=== PATIENT | female | born 1930 | race Asian ===

== ENCOUNTER 2016-06-20 11:12 | Inpatient (IN) | payer OTHER ==
[~2016-06-20] VITALS: Ht 152.4 cm; Wt 79.0 kg
[~2016-06-20 11:12] MED LIST: AMLO-110 PO; ATOR10TA88 PO; CALCTAB7 PO; CEFAZOLIN IV 2,000 MG/60 ML D5W IV SCH; COEN100C11 PO; INSDGI SC; LOSA50TA54 PO; MAGN400T6 PO; METF1000 PO; METO-596 PO; MULTTAB58 PO; NITR0.4S UT; OMEG1200 PO; ONDA4TAB10 SL; SPRIN/30 INH
[2016-06-20] MEDS ORDERED: ONDANSETRON INJ 2 MG/ML 2 ML VIAL IV STA ×2 (11:26→20:02)
--- NOTE | 2016-06-20 11:27 | EMERGENCY ROOM VISIT NOTE ---
History Report prepared by [place]: Lev Duarte Under the Supervision of: Dr. Hipolito Mendosa D.O. First contact with patient: 11:17 Chief Complaint: LEG PAIN,LEG INJURY Stated Complaint: FALL, R LEG FX History of Present Illness The patient is an 85 year old female who presents to the Emergency Room with complaints of persistent right knee pain status-post fall this morning. The patient's family believes that she lost her balance before falling. She did not hit her head or lose consciousness. The patient denies chest, back, or abdominal pain. She had some relief of her pain from Fentanyl which she received in the ambulance en route to the ED. The patient is s/p bilateral knee replacement. She has a history of hypertension and diabetes. The patient denies tobacco or alcohol use. Source of History: patient, family Onset: this morning Position: knee (right) Quality: other (s/p fall) Timing: other (persistent) Modifying Factors (Relieving): narcotics Associated Symptoms: No LOC, No abdominal pain, No back pain, No chest pain , No headache Review of Systems See HPI for pertinent positives & negatives. A total of 10 systems reviewed and were otherwise negative. Past Medical & Surgical Medical Problems: (1) DM (diabetes mellitus) (2) HTN (hypertension) (3) Stacey-prosthetic femoral shaft fracture Surgical Problems: (1) B/L hip arthroplasty Family History Patient reports no known family medical history. Social History Smoking Status: Never Smoker Occupation Status: unemployed Current/Historical Medications Scheduled Amlodipine (Norvasc), 5 MG PO DAILY Atorvastatin (Lipitor), 5 MG PO DAILY Calcium Carbonate-Vitamin D W/ (Caltrate 600 Plus), 1 TAB PO DAILY Coenzyme Q10 (Ubidecarenone) (Coq-10), 200 MG PO DAILY Insulin Glargine (Lantus), 37 UNITS SC QAM Losartan Potassium (Cozaar), 50 MG PO BID Magnesium Oxide (Mag-Ox), 400 MG PO DAILY Metformin Hcl (Glucophage), 1,000 MG PO BID Metoprolol Tartrate (Lopressor), 100 MG PO BID Multiple Vitamin (Multivitamin), 1 TAB PO DAILY [place]-3 Fatty Acids (Fish Oil), 1 CAP PO DAILY Tiotropium [place] (Spiriva Handihaler), 1 CAP INH DAILY Scheduled PRN Nitroglycerin (Nitrostat), 0.4 MG UT UD PRN for Chest Pain Allergies Coded Allergies: No Known Allergies (Verified , 06/20/16) Physical Exam Vital Signs Date Time Temp Pulse Resp B/P Pulse Ox O2 Delivery O2 Flow Rate FiO2 06/20/16 15:30 88 20 129/80 97 06/20/16 13:53 60 20 136/74 100 Nasal Cannula 06/20/16 13:00 63 06/20/16 12:19 99 Nasal Cannula 2.0 06/20/16 12:17 64 18 158/74 99 Nasal Cannula 2.0 06/20/16 11:14 36.6 60 18 160/81 88 Room Air Physical Exam GENERAL: Patient is awake, alert, very anxious and uncomfortable appearing, appears to be in significant pain. EYES: The conjunctivae are clear. The pupils are round and reactive. EARS, NOSE, MOUTH AND THROAT: The nose is without any evidence of any deformity. Mucous membranes are moist tongue is midline NECK: The neck is nontender and supple. RESPIRATORY: Normal respiratory effort is noted there is no evidence of wheezing rhonchi or rales CARDIOVASCULAR: Regular rate and rhythm noted there no murmurs rubs or gallops normal S1 normal S2 GASTROINTESTINAL: The abdomen is soft. Bowel sounds are present in all quadrants. Abdomen is nontender BACK: No midline tenderness or or step-off noted range of motion in flexion extension as well as rotation no signs of muscle spasm noted MUSCULOSKELETAL/EXTREMITIES: Crepitus and tenderness over the right knee, range of motion was deferred at this time, no instability in anterior posterior plane , pulses symmetric distally. SKIN: There is no obvious evidence of any rash. There are no petechiae, pallor or cyanosis noted. NEUROLOGIC: Patient is awake alert and oriented x3. Medical Decision & Procedures ER Provider Diagnostic Interpretation: X-ray results as stated below per interpretation by me and the radiologist. RIGHT KNEE 1 OR 2 VIEWS ROUTINE CLINICAL HISTORY: fall Right trauma. Pain. COMPARISON: None. DISCUSSION: Blank distracted fracture distal femoral shaft. Fracture extends to a position immediately lateral to a total joint prosthetic at the level of the femoral component. No additional acute bony abnormalities are appreciated. There is no evidence for soft tissue swelling. IMPRESSION: Oblique distracted fracture distal femoral shaft Electronically signed by: Blaze Felix M.D. 06/20/2016 12:08 PM Dictated Date/Time: 06/20/2016 12:07 PM Laboratory Results Test 06/20/16 12:30 Immature Granulocyte % (Auto) 0.2 % White Blood Count 10.76 K/uL (4.8-10.8) Red Blood Count 4.22 M/uL (4.2-5.4) Hemoglobin 12.3 g/dL (12.0-16.0) Hematocrit 36.7 % (37-47) Mean Corpuscular Volume 87.0 fL (80-100) Mean Corpuscular Hemoglobin 29.1 pg (25-34) Mean Corpuscular Hemoglobin Concent 33.5 g/dl (32-36) Platelet Count 257 K/uL (130-400) Mean Platelet Volume 9.8 fL (7.4-10.4) Neutrophils (%) (Auto) 71.8 % Lymphocytes (%) (Auto) 21.8 % Monocytes (%) (Auto) 4.0 % Eosinophils (%) (Auto) 2.0 % Basophils (%) (Auto) 0.2 % Neutrophils # (Auto) 7.73 K/uL (1.4-6.5) Lymphocytes # (Auto) 2.35 K/uL (1.2-3.4) Monocytes # (Auto) 0.43 K/uL (0.11-0.59) Eosinophils # (Auto) 0.21 K/uL (0-0.5) Basophils # (Auto) 0.02 K/uL (0-0.2) Immature Granulocyte # (Auto) 0.02 K/uL (0.00-0.02) Activated Partial Thromboplast Time 27.6 SECONDS (21.0-31.0) Partial Thromboplastin Ratio 1.1 Estimated Average Glucose 171 mg/dl Hemoglobin A1c 7.6 % (4.5-5.6) Total Bilirubin 0.5 mg/dl (0.2-1) Direct Bilirubin < 0.1 mg/dl (0-0.2) Aspartate Amino Transf (AST/SGOT) 16 U/L (15-37) Alanine Aminotransferase (ALT/SGPT) 20 U/L (12-78) Alkaline Phosphatase 103 U/L (45-117) Troponin I < 0.015 ng/ml (0-0.045) Total Protein 7.2 gm/dl (6.4-8.2) Albumin 2.9 gm/dl (3.4-5.0) Lipase 114 U/L (73-393) Laboratory results per my review. Medications Administered Medications (Trade) Dose Ordered Sig/Alexis Route Start Time Stop Time Status Last Admin Dose Admin Ondansetron HCl (Zofran Inj) 4 mg NOW STAT IV 06/20/16 11:26 06/20/16 11:27 DC 06/20/16 12:24 4 MG Morphine Sulfate (MoRPHine SULFATE INJ) 4 mg Q15M PRN IV 06/20/16 11:30 06/20/16 21:55 DC 06/20/16 12:24 4 MG Cefazolin Sodium 2000 mg 2,000 mg PREOP IV 06/20/16 06:00 06/20/16 18:00 DC 06/20/16 16:14 2,000 MG Sodium Chloride (1/2 Nss 1000ml) 1,000 ml @ 100 mls/hr Q10H IV 06/20/16 14:15 07/20/16 14:14 06/20/16 23:49 100 MLS/HR Povidone Iodine (Betadine Ophthalmic Prep Solution) 30 ml STK-MED ONCE .ROUTE 06/20/16 15:49 06/20/16 15:51 DC 06/20/16 15:49 17.5 ML Lidocaine/ Epinephrine (Xylocaine/Epine 1% Inj) 20 ml STK-MED ONCE .ROUTE 06/20/16 16:17 06/20/16 16:19 DC 06/20/16 16:17 20 ML Bupivacaine HCl (Marcaine 0.5% MPF Inj) 30 ml STK-MED ONCE .ROUTE 06/20/16 16:17 06/20/16 16:20 DC 06/20/16 16:17 20 ML Oxycodone HCl (Roxicodone Immediate Rel Tab) 1-2 TABS FOR PAIN 1 TABLET ... Q4H PRN PO 06/20/16 19:30 07/04/16 19:29 06/21/16 06:35 10 MG ED Course 1125: The patient was evaluated in room B12b. A complete history and physical examination were performed. 1126: Zofran 4 mg IV. 1130: Morphine Sulfate 4 mg IV. 1253: Spoke with Miguel Benitez PA-C, [facility]. Somebody will be in to see the patient. 1324: The patient is being evaluated by Dr. Todd, [facility]. The patient will be taken to the OR. 1420: Spoke with Dr. Ramsay [facility], for medical clearance. Medical Decision Prior records reviewed and summarized above. Triage Nursing notes reviewed and agree them. Additional history obtained from family. The patient's history was concerning for traumatic injury. Differential diagnosis: Etiologies such as fracture, dislocation, neurovascular compromise, compartment syndrome, soft tissue injury, as well as others were entertained. The patient is an 85-year-old female who presented to the emergency department for an evaluation of right knee pain. The patient has a history of knee replacement on that side. This was done at another hospital. The patient had very severe right knee pain on exam. The patient's x-ray did show a significant distal femur fracture which appeared to be above the knee replacement. I discussed this case with the covering orthopedic physician at the [facility]. I also discussed his case with the on-call [facility] group. They 've agreed to evaluate the patient in the emergency department for further management and disposition. The patient was treated with IV fluids IV pain medicine and IV antiemetics. She was feeling much better on subsequent reevaluation. Likely this represents a surgical fracture. Consults Time Called: 1250 Consulting Physician: Miguel Benitez PA-C, [facility] Returned Call: [phone]: Spoke with Miguel Benitez PA-C, [facility]. Somebody will be in to see the patient. Additional Consults: Time Called: 1410 Consulted Physician: Dr. Ramsay, [facility], Returned Call: 1420 Additional Comments: 1420: Spoke with Dr. Ramsay, [facility], for medical clearance. Impression Primary Impression: Fall Additional Impression: Displaced fracture of right femur Scribe Attestation The scribe's documentation has been prepared under my direction and personally reviewed by me in its entirety. I confirm that the note above accurately reflects all work, treatment, procedures, and medical decision making performed by me. Departure Information Dispostion Being Evaluated By Surgeon Referrals No Doctor, Assigned (PCP) Patient Instructions My [facility] Problem Qualifiers Primary Impression: Fall Encounter type: initial encounter Qualified Codes: W19.XXXA - Unspecified fall, initial encounter Additional Impression: Displaced fracture of right femur Femur location: shaft Fracture type: closed Fracture morphology: oblique
[2016-06-20] MEDS ORDERED: MoRPHine SULFATE 4 MG/ML 1 ML CARP\\VIAL IV PRN (11:30)
[2016-06-20] MEDS ORDERED: INSDGI SC (11:42)
--- NOTE | 2016-06-20 12:09 | DIAGNOSTIC IMAGING REPORT ---
RIGHT KNEE 1 OR 2 VIEWS ROUTINE CLINICAL HISTORY: fall Right trauma. Pain. COMPARISON: None. DISCUSSION: Blank distracted fracture distal femoral shaft. Fracture extends to a position immediately lateral to a total joint prosthetic at the level of the femoral component. No additional acute bony abnormalities are appreciated. There is no evidence for soft tissue swelling. IMPRESSION: Oblique distracted fracture distal femoral shaft Electronically signed by: Blaze Felix M.D. 06/20/2016 12:08 PM Dictated Date/Time: 06/20/2016 12:07 PM
[2016-06-20 12:38] LABS: BASO % 0.2 %; BASO ABS # 0.02 K/uL (0-0.2); COMPLETE YES; HEMATOCRIT 36.7 % (37-47); IG% 0.2 %; LYMPH % 21.8 %; LYMPH ABS # 2.35 K/uL (1.2-3.4); MEAN CORPUSCULAR HEMOGLOBIN 29.1 pg (25-34); MEAN CORPUSCULAR HGB CONC 33.5 g/dl (32-36); MEAN PLATELET VOLUME 9.8 fL (7.4-10.4); NEUT % 71.8 %; PLATELET COUNT 257 K/uL (130-400); RED BLOOD COUNT 4.22 M/uL (4.2-5.4); WHITE BLOOD COUNT 10.76 K/uL (4.8-10.8)
[2016-06-20 12:47] LABS: PARTIAL THROMBOPLASTIN RATIO 1.1; PROTHROMBIN TIME (PATIENT) 10.7 SECONDS (9.0-12.0)
[2016-06-20 12:58] LABS: BLOOD UREA NITROGEN 8 mg/dl (7-18); BUN/CREATININE RATIO 16.5 (10-20); CALCIUM 8.6 mg/dl (8.5-10.1); CARBON DIOXIDE 31 mmol/L (21-32); CHLORIDE 99 mmol/L (98-107); CREATININE 0.49 mg/dl (0.60-1.20); GLUCOSE 145 mg/dl (70-99); POTASSIUM 3.9 mmol/L (3.5-5.1); SODIUM 136 mmol/L (136-145)
[2016-06-20 13:01] LABS: ALKALINE PHOSPHATASE 103 U/L (45-117); ALT/SGPT 20 U/L (12-78); AST/SGOT 16 U/L (15-37)
[2016-06-20] MEDS: SODIUM CHLORIDE 0.45% 1000ML 1,000 ML IV SCH ×2 (14:15→23:49)
--- NOTE | 2016-06-20 14:40 | History and Physical ---
History & Physical Date Jun 20, 2016. Chief Complaint RLE pain History of Present Illness The patient is a 85 year old female with complaints of RLE pain after a fall earlier today. She denies any LOC, SOB, or dizziness before or after fall. She is visiting from [place]. Past Medical/Surgical History Medical Problems: (1) DM (diabetes mellitus) (2) HTN (hypertension) Surgical Problems: (1) B/L Knee arthroplasty Additional History Hepatic Disease: No Endocrine Disorder: Yes (Diabetes) Kidney Disease: No Hypertension: Yes Heart Disease: Bleeding Tendencies: No Infectious Diseases: No Allergies Coded Allergies: No Known Allergies (Verified , 06/20/16) Home Medications Scheduled Amlodipine (Norvasc), 5 MG PO DAILY Atorvastatin (Lipitor), 5 MG PO DAILY Calcium Carbonate-Vitamin D W/ (Caltrate 600 Plus), 1 TAB PO DAILY Coenzyme Q10 (Ubidecarenone) (Coq-10), 200 MG PO DAILY Insulin Glargine (Lantus), 37 UNITS SC QAM Insulin Glargine (Lantus), 37 UNITS SC QAM Losartan Potassium (Cozaar), 50 MG PO BID Magnesium Oxide (Mag-Ox), 400 MG PO DAILY Metformin Hcl (Glucophage), 1,000 MG PO BID Metoprolol Tartrate (Lopressor), 100 MG PO BID Multiple Vitamin (Multivitamin), 1 TAB PO DAILY [place]-3 Fatty Acids (Fish Oil), 1 CAP PO DAILY Tiotropium [place] (Spiriva Handihaler), 1 CAP INH DAILY Scheduled PRN Nitroglycerin (Nitrostat), 0.4 MG UT UD PRN for Chest Pain Physical Examination Head: normocephalic, atraumatic Neck: supple, trachea midline Respiratory/Chest: lungs clear, no respiratory distress Cardiovascular: regular rate, rhythm Abdomen / GI: non tender Extremities: + pertinent finding (Previous incisions well healed.Wiggling toes up & down. + TTP Right thigh. BCR > sec. Sensation to LT intact.) Addiitonal Comments: RADIOGRAPHS: Displaced shortened distal femur oblique fracture, with well fixed TKA components. Diagnosis Right distal periprosthetic femur fracture, closed, initial visit. Plan of Treatment After a lengthy discussion with the family and patient regarding my above findings, I recommended ORIF R distal femur. The risk and benefits of surgery vs non-op treatment were discussed. They wished to proceed with surgery. Will plan on surgery once medically cleared and OR available. She is NPO with IVF, and NWB RLE. Jackson will be placed. Consent form signed.
[2016-06-20] MEDS ORDERED: FENTANYL CITRATE INJ 50 MCG/1 ML 2 ML VIAL ONE ×2 (15:32→17:26)
[2016-06-20] MEDS ORDERED: POVIDONE-IODINE OP SOLN 30 ML BTL ONE (15:49)
[2016-06-20] MEDS ORDERED: BUPIVACAINE 0.5 % 5 MG/1 ML MPF 30ML VIAL ONE (16:17)
[2016-06-20] MEDS ORDERED: LIDOCAINE/EPINEPHRINE 1% 20 ML VIAL ONE (16:17)
--- NOTE | 2016-06-20 16:18 | DIAGNOSTIC IMAGING REPORT ---
CHEST ONE VIEW PORTABLE HISTORY: Right leg fracture. medical clearance COMPARISON: Chest 04/27/2016. FINDINGS: Stable right hilar prominence and blunting the left lateral costophrenic sulcus. The heart is mildly enlarged. This is also unchanged. No new focal lung consolidations. No evidence for pulmonary edema. No pneumothorax. Right paratracheal fullness is also stable. IMPRESSION: No significant change compared to the prior study. No acute process. Stable right hilar prominence and left basilar pleural thickening. Electronically signed by: Celso Hood M.D. 06/20/2016 4:16 PM Dictated Date/Time: 06/20/2016 4:15 PM
[2016-06-20] MEDS ORDERED: IV FLUIDS COMPLETED PRN (16:30)
[2016-06-20] MEDS ORDERED: CISATRACURIUM BESYLATE IV SOLN 2 MG/ML 10 ML VIAL ONE (16:54)
[2016-06-20] MEDS ORDERED: PHENYLEPHRINE HCL INJ 10 MG/ML VIAL ONE (16:54)
[2016-06-20] MEDS ORDERED: NEOSTIGMINE METHYLSULFATE 5 MG/5 ML SYR ONE (16:54)
[2016-06-20] MEDS ORDERED: EpHEDrine SULFATE 50MG/5ML SYR ONE (16:54)
[2016-06-20] MEDS ORDERED: LARYING-O-JET KIT (LTA) EXT ONE ×2 (16:54)
[2016-06-20] MEDS ORDERED: PROPOFOL IV EMULSION 10 MG/ML 20 ML VIAL IV ONE (16:54)
[2016-06-20] MEDS ORDERED: ONDANSETRON INJ 2 MG/ML 2 ML VIAL ONE ×2 (16:54→20:01)
[2016-06-20] MEDS ORDERED: LIDOCAINE HCL 2% 2 ML VIAL (20MG/ML) ONE (16:54)
[2016-06-20] MEDS ORDERED: GLYCOPYRROLATE INJ 0.2 MG/ML VIAL ONE (16:54)
[2016-06-20] MEDS ORDERED: SUCCINYLCHOLINE 100MG/5ML SYR IV ONE (17:25)
--- NOTE | 2016-06-20 19:25 | [facility] Post Operative Brief Note ---
Immediate Operative Summary Operative Date Jun 20, 2016. Pre-Operative Diagnosis Right distal periprosthetic femur fracture Post-Operative Diagnosis Same as preoperative diagnosis Procedure(s) Performed Open Reduction Internal Fixation Right Femur Fracture Surgeon Dr. Todd Finance Clerk Surgeon(s) Dr Alejandra Estimated Blood Loss 200ml Findings Displaced, long oblique, distal femur, periprosthetic fracture, femoral component well fixed. Fluids (cc crystalloids) 1400 Specimens none Drains n/a Anesthesia Gen Complication(s) None Disposition Recovery Room / PACU (Stable)
--- NOTE | 2016-06-20 19:26 | [facility] Operative Report ---
Operative Report Operative Date Jun 20, 2016. Pre-Operative Diagnosis Right distal periprosthetic femur fracture Post-Operative Diagnosis Same Procedure(s) Performed ORIF right distal periprosthetic femur fracture. Surgeon Dr. Todd Perishable Freight Inspector Surgeon(s) Dr Alejandra Estimated Blood Loss 200ml Findings Displaced, long oblique, distal femur, periprosthetic fracture, femoral component well fixed. Fluids 1400 Specimens none Drains n/a Anesthesia Gen Complication(s) None Disposition Recovery Room / PACU (Stable) Indications The patient is a 85 year old female who sustained a right distal femur periprosthetic fracture from a ground level fall. The patients treatment options of conservative versus surgical intervention were discussed. I recommended surgery, once the patient was medically cleared, to allow for decreased morbidity and mortality. The patient understands the risks of surgery , which include but are not limited to: bleeding, infection, re-operation, damage to nerves and arteries, continued pain, failure of the hardware, mal- union, non-union, DVT, and . The patient understands all of these instructions and explanations, all of their questions have been satisfactorily addressed. The patient has elected to proceed with surgery and the informed consent was signed. Description of Procedure IMPLANTS: 1) Synthes 8 Hole Shaft 4.5 mm Locking Condylar Plate (Synthes). 2) 7.3 mm Cannulated Screw x 60 mm. 3) 5.0 mm Cannulated Screw x 55 mm. 4) 5.0 Solid Locking Screws (28, 32 x 2, 34 x 3, 36, & 65 mm). 5) 4.5 mm cortical screw 32 & 34 mm. PROCEDURE: The patient was taken to the Operating Room and placed in the Supine position on the radiolucent table after general anesthesia was administered. A bump was placed under the ipsilateral hip. A multidisciplinary time-out was performed identifying my initials on the right lower limb as the correct and operative limb. Prior to the incision being made, 2 grams of intravenous Ancef was given. The right lower extremity was prepped in the standard fashion. The distal femur, proximal fibula, the previous knee incisions, and the planned incision were marked. The incision was injected with a 50:50 mixture of 1% Lidocaine plain and 0.5% Bupivacaine with epinephrine for a total of 10cc. The planned incision was made and carried down and through the IT band, using the rent in the distal aspect of the IT band caused by the proximal fragment, to expose the distal femur. An elevator was used to expose the ends of the fracture fragments which were displaced. The fracture site was cleaned with a combination of irrigation, suction, and Ronguer. The femoral prosthesis was well fixed to the distal fragment. A Fabreugh clamp was used to hold the fragments reduced after using a bump, distal traction and manually keying in the 2 fragments together. Fluoroscopy was brought in to ensure anatomic reduction. A cortical lag screw was placed to hold the fracture reduced. An 8 hole plate was selected and Fluoroscopy was used to guide wire was placed. The initial lag screw prevented the plate from seating properly. 2 additional lag screws more proximally were placed in a more superior to posterior angle to allow the plate to sit properly after the initial lag screw was removed. The reduction and plate alignment was check under Fluoroscopy, showing excellent alignment and placement of the plate. A whirlybird was placed to hold the proximal aspect of the plates reduced to the shaft. Two more guide wires were placed distally and the distal central 7.3 screw was placed. The central distal screw was locked in place and the 5.0 cannulated screw was placed in the standard fashion. 3 additional 5.0 solid locking screws were placed in the standard fashion distally. Four 5.0 locking screws were placed through the plate in the proximal fragment and obtained bi-cortical fixation in the standard fashion. The wounds were copiously irrigated with 500 cc normal saline mixed with Betadine ophthalmic solution followed by another 2 L of normal saline. Fluoroscopy was brought in to obtain final x-rays which showed near anatomic alignment, with good placement of the plates and screws, TKA components in good position with no evidence of loosening. The IT Band was closed with 0 Vicryl. The subcutaneous tissue was closed with 3 -0 Vicryl. The skin was closed with bernard. The incisions were covered with Xeroform, 4x4s, ABD, and Sterile cast padding, and foot to thigh JOHN. The alignment of her lower leg was the same as her non-operative side. Range of motion of the knee was 0-110 degrees. The patient was transfer to the hospital bed and taken to the PACU in stable condition. The patient was placed in a hinged range of motion knee brace, locked in extension. The sponge and needle counts were correct. Post-op Instructions: The patient was re-admitted to the hospitalist service. The patient will be NWB. The patient will be seen by PT/OT. Labs will be checked in the am. DVT prophylaxis will be with mechanical devices and Lovenox will be started in the a.m and continued for 3 weeks, followed by aspirin for another 3 weeks. The brace may be unlocked to match her maximum range of motion for sitting purposes. It can be blocked at 30 of flexion while ambulating. I attest to the content of the Intraoperative Record and any orders documented therein. Any exceptions are noted below.
[2016-06-20] MEDS ORDERED: ONDANSETRON INJ 2 MG/ML 2 ML VIAL IV PRN (19:30)
[2016-06-20] MEDS ORDERED: METOCLOPRAMIDE HCL INJ 5 MG/ML 2 ML VIAL IV PRN (19:30)
[2016-06-20] MEDS ORDERED: DiphenhydrAMINE HCL 50 MG/ML VIAL IV PRN (19:30)
--- NOTE | 2016-06-20 19:33 | DIAGNOSTIC IMAGING REPORT ---
RIGHT FEMUR 2 VIEWS ROUTINE CLINICAL HISTORY: ORIF DISTAL RIGHT FEMUR Right COMPARISON STUDY: Right knee 06/20/2016. FINDINGS: Total fluoroscopy time was 34 seconds. 5 fluoroscopic spot images of the right femur. There is a cortical plate transfixed with screws bridging the distal femoral fracture. The hardware appears intact. The alignment is anatomic. There is a right total knee arthroplasty. IMPRESSION: Fluoroscopy provided for internal fixation of a distal right femur fracture. Electronically signed by: Celso Hood M.D. 06/20/2016 7:31 PM Dictated Date/Time: 06/20/2016 7:31 PM
[2016-06-20] MEDS ORDERED: NITROGLYCERIN 0.4 MG SL PER TAB CHARGE UT PRN (19:45)
[2016-06-20] MEDS ORDERED: LABETALOL HCL IV 5 MG/ML 20ML IV PRN (20:00)
[2016-06-20] MEDS ORDERED: PROMETHAZINE HCL INJ 12.5 MG in SODIUM CHLORIDE 0.9% 50ML 50 ML IV ONE (20:00)
[2016-06-20] MEDS ORDERED: ATROPINE SULFATE 0.1 MG/ML 5ML SYR IV PRN (20:00)
[2016-06-20] MEDS ORDERED: NALOXONE HCL 0.4 MG/1 ML VIAL/CARP IV PRN (20:00)
[2016-06-20] MEDS ORDERED: FENTANYL CITRATE INJ 50 MCG/1 ML 2 ML VIAL IV PRN (20:00)
[2016-06-20] MEDS ORDERED: EpHEDrine SULFATE INJ 50 MG/ML AMP IV PRN (20:00)
[2016-06-20 20:29] LABS: HEMATOCRIT 32.6 % (37-47)
--- NOTE | 2016-06-20 20:32 | Anesthesiology Progress Note ---
Anesthesia Post Op Note Date & Time Jun 20, 2016 at 20:32 Vital Signs Pain Intensity: 0 Vital Signs Past 12 Hours Date Time Temp Pulse Resp B/P Pulse Ox O2 Delivery O2 Flow Rate FiO2 06/20/16 20:20 63 15 143/71 96 Nasal Cannula 4 06/20/16 20:10 66 16 135/78 99 Mask 10 06/20/16 20:00 67 16 152/70 97 Mask 10 06/20/16 19:49 36.9 68 16 141/82 99 Mask 10 06/20/16 15:30 88 20 129/80 97 06/20/16 13:53 60 20 136/74 100 Nasal Cannula 06/20/16 13:00 63 06/20/16 12:19 99 Nasal Cannula 2.0 06/20/16 12:17 64 18 158/74 99 Nasal Cannula 2.0 06/20/16 11:14 36.6 60 18 160/81 88 Room Air Notes Mental Status: alert / awake / arousable, participated in evaluation Pt Amnestic to Procedure: Yes Nausea / Vomiting: adequately controlled Pain: adequately controlled Airway Patency, RR, SpO2: stable & adequate BP & HR: stable & adequate Hydration State: stable & adequate Anesthetic Complications: no major complications apparent
[2016-06-20 21:45] VITALS: BP 152/75; PULSE 72; TEMP 36.4; O2SAT 96
[2016-06-20] MEDS ORDERED: GLUCOSE 40% GEL 15 GM TUBE PO PRN (21:45)
[2016-06-20] MEDS ORDERED: GLUCOSE 10 TABS/TUBE PO PRN (21:45)
[2016-06-20] MEDS ORDERED: GLUCAGON FOR INJ 1 MG VIAL SQ PRN (21:45)
[2016-06-20] MEDS ORDERED: DEXTROSE 50% 50 ML SYR IV PRN (21:45)
[2016-06-20] MEDS ORDERED: ERGOCALCIFEROL 50,000 INTER.UNIT CAP PO ONE (22:00)
[2016-06-20 22:20] VITALS: BP 148/76; PULSE 78; TEMP 36.3; O2SAT 96
[2016-06-20] MEDS: OXYCODONE HCL IR 5 MG TAB (IMMEDIATE RELEASE) PO PRN (22:24)
--- NOTE | 2016-06-20 22:30 | Progress Note ---
Subjective Date of Service: Jun 20, 2016. Subjective Pt evaluation today including: conversation w/ patient, conversation w/ family , physical exam, chart review, lab review, review of studies, conversation w/ eligibility consultant, review of inpatient medication list pt seen ~230pm, d/w dr celis and andressa asked to evaluate for preop assessment and then continue to manage post op femur fx no current chest pain no sob. does get DENSON but family notes this is ongoing and stable for at least 2 years. son in law relates some kind of cardiac testing back home in [place] that raised concern no CAD, but no clear hx of [place] /cath/stenting, and no sx acutely. diabetic. Problem List Medical Problems: (1) Displaced fracture of right femur Status: Acute (2) Fall Status: Acute (3) Left lower lobe pneumonia Status: Acute (4) Vomiting Status: Acute Review of Systems Respiratory: + dyspnea on exertion (ongoing chronic), No shortness of breath Cardiac: No chest pain ros otherwise negative except for as above Objective Vital Signs Date Time Temp Pulse Resp B/P Pulse Ox O2 Delivery O2 Flow Rate FiO2 06/20/16 21:45 Nasal Cannula 4.0 06/20/16 21:45 36.4 72 16 152/75 96 Nasal Cannula 4.0 06/20/16 21:15 80 18 115/58 96 Nasal Cannula 4 06/20/16 21:00 73 16 132/61 97 Nasal Cannula 4 06/20/16 20:45 63 16 132/61 97 Nasal Cannula 4 06/20/16 20:30 36.1 66 16 132/69 97 Nasal Cannula 4 06/20/16 20:20 63 15 143/71 96 Nasal Cannula 4 06/20/16 20:10 66 16 135/78 99 Mask 10 06/20/16 20:00 67 16 152/70 97 Mask 10 06/20/16 19:49 36.9 68 16 141/82 99 Mask 10 06/20/16 15:30 88 20 129/80 97 06/20/16 13:53 60 20 136/74 100 Nasal Cannula 06/20/16 13:00 63 06/20/16 12:19 99 Nasal Cannula 2.0 06/20/16 12:17 64 18 158/74 99 Nasal Cannula 2.0 06/20/16 11:14 36.6 60 18 160/81 88 Room Air Physical Exam General Appearance: no apparent distress Eyes: EOMI ENT: hearing grossly normal Neck: trachea midline Respiratory/Chest: lungs clear, normal breath sounds, no respiratory distress, no accessory muscle use Cardiovascular: regular rate, rhythm Neurologic/Psychiatric: environmental compliance inspector II-XII nml as tested, alert Skin: normal color, warm/dry Laboratory Results Last 24 Hours Test 06/20/16 12:30 06/20/16 15:45 06/20/16 19:51 06/20/16 20:20 White Blood Count 10.76 K/uL Red Blood Count 4.22 M/uL Hemoglobin 12.3 g/dL 10.9 g/dL Hematocrit 36.7 % 32.6 % Mean Corpuscular Volume 87.0 fL Mean Corpuscular Hemoglobin 29.1 pg Mean Corpuscular Hemoglobin Concent 33.5 g/dl Platelet Count 257 K/uL Mean Platelet Volume 9.8 fL Neutrophils (%) (Auto) 71.8 % Lymphocytes (%) (Auto) 21.8 % Monocytes (%) (Auto) 4.0 % Eosinophils (%) (Auto) 2.0 % Basophils (%) (Auto) 0.2 % Neutrophils # (Auto) 7.73 K/uL Lymphocytes # (Auto) 2.35 K/uL Monocytes # (Auto) 0.43 K/uL Eosinophils # (Auto) 0.21 K/uL Basophils # (Auto) 0.02 K/uL RDW Standard Deviation 43.4 fL RDW Coefficient of Variation 13.8 % Immature Granulocyte % (Auto) 0.2 % Immature Granulocyte # (Auto) 0.02 K/uL Prothrombin Time 10.7 SECONDS Prothromb Time International Ratio 1.0 Activated Partial Thromboplast Time 27.6 SECONDS Partial Thromboplastin Ratio 1.1 Sodium Level 136 mmol/L Potassium Level 3.9 mmol/L Chloride Level 99 mmol/L Carbon Dioxide Level 31 mmol/L Anion Gap 6.0 mmol/L Blood Urea Nitrogen 8 mg/dl Creatinine 0.49 mg/dl Est Creatinine Clear Calc Drug Dose 79.5 ml/min Estimated GFR () 103.7 Estimated GFR (Non- 89.5 BUN/Creatinine Ratio 16.5 Random Glucose 145 mg/dl Calcium Level 8.6 mg/dl Total Bilirubin 0.5 mg/dl Direct Bilirubin < 0.1 mg/dl Aspartate Amino Transf (AST/SGOT) 16 U/L Alanine Aminotransferase (ALT/SGPT) 20 U/L Alkaline Phosphatase 103 U/L Troponin I < 0.015 ng/ml Total Protein 7.2 gm/dl Albumin 2.9 gm/dl Lipase 114 U/L Bedside Glucose 129 mg/dl 198 mg/dl 25-Hydroxy Vitamin D Total 32.9 ng/ml Assessment and Plan femur fx - EKG nonacute, certainly as d/w ortho, anesthesia, and family, risks of not proceeding (bedbound, high risk, long healing) greatly outweigh procedural risks. all in agreement. -vitamin D level reasonable. outpt f/u for bone health eval DM - check A1c, continue home meds, add supplemental novolog, follow BSG HTN - continue home meds, follow DVT proph - per orthopedics DENSON - longstanding, appearing to be stable. as long as no acute incidents or new sx arise during her hospitalization, would continue w/u and f/u w physician team more familiar to her at home ?COPD - continue spiriva - get records from home (son in law notes they can get information off portal - was just having technical difficulties at the time i was talking with him)
[2016-06-20 22:57] VITALS: BP 167/79; PULSE 87; TEMP 36.4; O2SAT 97
[2016-06-20] MEDS: CEFAZOLIN IV 2,000 MG in DEXTROSE 5% 50ML 50 ML IV SCH (23:49)
[2016-06-20] MEDS: LOSARTAN POTASSIUM 50 MG TAB PO SCH (23:50)
[2016-06-20] MEDS: METOPROLOL TARTRATE 100 MG TAB PO SCH (23:50)
[2016-06-20] MEDS: METFORMIN HCL 500 MG TAB PO SCH (23:51)
[2016-06-20 23:52] VITALS: BP 155/79; PULSE 93; TEMP 36.3; O2SAT 96
[2016-06-20] MEDS: MoRPHine SULFATE 2 MG/ML CARP IV PRN (23:53)
[2016-06-21] VITALS (9 sets, daily range): BP systolic 98–155; BP diastolic 59–75; PULSE 68–101; TEMP 36.3–37.2; O2SAT 92–98; Ht 152.4 cm; Wt 79.0 kg
[2016-06-21] MEDS: MoRPHine SULFATE 2 MG/ML CARP IV PRN (03:40)
[2016-06-21 06:10] LABS: ESTIMATED AVERAGE GLUCOSE 171 mg/dl; HA1C FLAG Normal (Normal)
[2016-06-21] MEDS: OXYCODONE HCL IR 5 MG TAB (IMMEDIATE RELEASE) PO PRN (06:35)
[2016-06-21 07:16] LABS: INR 1.1 (0.9-1.1); PROTHROMBIN TIME (PATIENT) 11.4 SECONDS (9.0-12.0)
[2016-06-21 07:31] LABS: HEMATOCRIT 32.6 % (37-47); MEAN CELL VOLUME 88.6 fL (80-100); MEAN CORPUSCULAR HEMOGLOBIN 29.1 pg (25-34); MEAN CORPUSCULAR HGB CONC 32.8 g/dl (32-36); PLATELET COUNT 255 K/uL (130-400); RED BLOOD COUNT 3.68 M/uL (4.2-5.4); WHITE BLOOD COUNT 12.15 K/uL (4.8-10.8)
--- NOTE | 2016-06-21 07:35 | Anesthesiology Progress Note ---
Anesthesia Post Op Note Date & Time Jun 21, 2016 at 07:35 Vital Signs Pain Intensity: 0 Vital Signs Past 12 Hours Date Time Temp Pulse Resp B/P Pulse Ox O2 Delivery O2 Flow Rate FiO2 06/21/16 07:30 36.7 75 16 128/65 98 4.0 06/21/16 04:53 36.3 85 18 127/75 98 Nasal Cannula 4.0 06/21/16 00:49 36.3 101 20 155/71 96 Nasal Cannula 4.0 06/21/16 00:10 Nasal Cannula 4.0 06/20/16 23:52 36.3 93 18 155/79 96 Nasal Cannula 4.0 06/20/16 22:57 36.4 87 16 167/79 97 Room Air 06/20/16 22:20 36.3 78 16 148/76 96 Nasal Cannula 4.0 06/20/16 21:45 Nasal Cannula 4.0 06/20/16 21:45 36.4 72 16 152/75 96 Nasal Cannula 4.0 06/20/16 21:15 80 18 115/58 96 Nasal Cannula 4 06/20/16 21:00 73 16 132/61 97 Nasal Cannula 4 06/20/16 20:45 63 16 132/61 97 Nasal Cannula 4 06/20/16 20:30 36.1 66 16 132/69 97 Nasal Cannula 4 06/20/16 20:20 63 15 143/71 96 Nasal Cannula 4 06/20/16 20:10 66 16 135/78 99 Mask 10 06/20/16 20:00 67 16 152/70 97 Mask 10 06/20/16 19:49 36.9 68 16 141/82 99 Mask 10 Notes Mental Status: alert / awake / arousable, participated in evaluation Pt Amnestic to Procedure: Yes Nausea / Vomiting: adequately controlled Pain: adequately controlled Airway Patency, RR, SpO2: stable & adequate BP & HR: stable & adequate Hydration State: stable & adequate Anesthetic Complications: no major complications apparent
[2016-06-21 07:45] LABS: BUN/CREATININE RATIO 17.6 (10-20); CALCIUM 7.9 mg/dl (8.5-10.1); CREATININE 0.63 mg/dl (0.60-1.20); POTASSIUM 4.6 mmol/L (3.5-5.1)
[2016-06-21] MEDS: CEFAZOLIN IV 2,000 MG in DEXTROSE 5% 50ML 50 ML IV SCH (08:17)
[2016-06-21] MEDS: ENOXAPARIN 30 MG/0.3 ML SYR SQ SCH ×2 (08:18→21:25)
[2016-06-21 08:38] LABS: URINE APPEARANCE CLOUDY (CLEAR); URINE BILIRUBIN NEG (NEG); URINE COLOR DK YELLOW; URINE NITRITE NEG (NEG); URINE SPECIFIC GRAVITY 1.025 (1.000-1.030); UROBILINOGEN NEG (NEG)
--- NOTE | 2016-06-21 08:41 | Orthopedic Progress Note ---
Orthopedic Progress Note Date of Service Jun 21, 2016. Subjective Post OP Day: 1 Denies: complaints Objective N/V intact, splint C/D/I, capillary refill less than 2 sec., A&O x3 Date Time Temp Pulse Resp B/P Pulse Ox O2 Delivery O2 Flow Rate FiO2 06/21/16 07:39 Nasal Cannula 06/21/16 07:30 36.7 75 16 128/65 98 4.0 06/21/16 04:53 36.3 85 18 127/75 98 Nasal Cannula 4.0 06/21/16 00:49 36.3 101 20 155/71 96 Nasal Cannula 4.0 06/21/16 00:10 Nasal Cannula 4.0 06/20/16 23:52 36.3 93 18 155/79 96 Nasal Cannula 4.0 06/20/16 22:57 36.4 87 16 167/79 97 Room Air 06/20/16 22:20 36.3 78 16 148/76 96 Nasal Cannula 4.0 06/20/16 21:45 Nasal Cannula 4.0 06/20/16 21:45 36.4 72 16 152/75 96 Nasal Cannula 4.0 06/20/16 21:15 80 18 115/58 96 Nasal Cannula 4 06/20/16 21:00 73 16 132/61 97 Nasal Cannula 4 06/20/16 20:45 63 16 132/61 97 Nasal Cannula 4 06/20/16 20:30 36.1 66 16 132/69 97 Nasal Cannula 4 06/20/16 20:20 63 15 143/71 96 Nasal Cannula 4 06/20/16 20:10 66 16 135/78 99 Mask 10 06/20/16 20:00 67 16 152/70 97 Mask 10 06/20/16 19:49 36.9 68 16 141/82 99 Mask 10 06/20/16 15:30 88 20 129/80 97 06/20/16 13:53 60 20 136/74 100 Nasal Cannula 06/20/16 13:00 63 06/20/16 12:19 99 Nasal Cannula 2.0 06/20/16 12:17 64 18 158/74 99 Nasal Cannula 2.0 06/20/16 11:14 36.6 60 18 160/81 88 Room Air Laboratory Results 24 Hours: Test 06/20/16 12:30 2/21/17 20:20 06/21/16 06:39 White Blood Count 10.76 K/uL Red Blood Count 4.22 M/uL Hemoglobin 12.3 g/dL 10.9 g/dL 10.7 g/dL Hematocrit 36.7 % 32.6 % 32.6 % Mean Corpuscular Volume 87.0 fL Mean Corpuscular Hemoglobin 29.1 pg Mean Corpuscular Hemoglobin Concent 33.5 g/dl Platelet Count 257 K/uL Mean Platelet Volume 9.8 fL Neutrophils (%) (Auto) 71.8 % Lymphocytes (%) (Auto) 21.8 % Monocytes (%) (Auto) 4.0 % Eosinophils (%) (Auto) 2.0 % Basophils (%) (Auto) 0.2 % Neutrophils # (Auto) 7.73 K/uL Lymphocytes # (Auto) 2.35 K/uL Monocytes # (Auto) 0.43 K/uL Eosinophils # (Auto) 0.21 K/uL Basophils # (Auto) 0.02 K/uL Prothromb Time International Ratio 1.0 1.1 Prothrombin Time 10.7 SECONDS 11.4 SECONDS Assessment & Plan Assessment: POD #1 s/p ORIF R distal femur periprosthetic fracture. Acute anemia blood loss. Plan: Continue nonweightbearing. Resume diet, renal/vegetarian. May be out of bed to chair. Start PT/OT. Elevate, ice right lower extremity, May allow the brace to bend to maximum flexion while sitting in a chair and locked at 30 when ambulating. Continue pain control. Discontinue Jackson later today. Recheck labs tomorrow a.m., No need for transfusion at this point. DVT prophylaxis: Teds, foot pumps, start Lovenox 30 mg twice a day today and continue for 3 weeks, then switch to aspirin 325 twice a day for another 3 weeks. we will change dressing tomorrow a.m. Appreciate medicine input. Discharge planning.
[2016-06-21 08:55] LABS: MANUAL MICROSCOPIC REQUIRED? NO; REVIEW REQ? YES
[2016-06-21] MEDS: LOSARTAN POTASSIUM 50 MG TAB PO SCH ×2 (09:29→21:21)
[2016-06-21] MEDS: METOPROLOL TARTRATE 100 MG TAB PO SCH ×2 (09:30→21:22)
[2016-06-21] MEDS: METFORMIN HCL 500 MG TAB PO SCH ×2 (09:30→18:00)
[2016-06-21] MEDS: MAGNESIUM OXIDE 400 MG TAB PO SCH (09:31)
[2016-06-21] MEDS: MULTIVITAMIN TAB PO SCH (09:31)
[2016-06-21] MEDS: CALCIUM 600MG + VIT D 400 IU TAB PO SCH (09:31)
[2016-06-21] MEDS: AMLODIPINE BESYLATE 5 MG TAB PO SCH (09:31)
[2016-06-21] MEDS: PANTOprazole SOD 40 MG TAB PO SCH (09:31)
[2016-06-21] MEDS: INSULIN ASPART 100 UNITS/ML 3 ML PEN SC SCH ×4 (09:31→21:00)
[2016-06-21] MEDS: ATORVASTATIN 10 MG TAB PO SCH (09:31)
[2016-06-21] MEDS: TIOTROPIUM BROMIDE 5 PUFF/90 MCG INH INH SCH (09:34)
[2016-06-21] MEDS ORDERED: POLYETHYLENE (MIRALAX) 17 GM PACK PO STA (09:34)
[2016-06-21] MEDS: INSULIN GLARGINE SOLOSTAR 100 UNITS/ML 3 ML PEN SC SCH (09:39)
--- NOTE | 2016-06-21 09:41 | Progress Note ---
Subjective Date of Service: Jun 21, 2016. Subjective Pt evaluation today including: conversation w/ patient, conversation w/ family , physical exam, chart review, lab review, review of studies, conversation w/ call center consultant, review of inpatient medication list Voiding: flowers catheter in place Report has cough and some yellow sputum, history of COPD possible in the borderline of possible level, currently is on nasal cannula oxygen, Eating breakfast first, pain better controlled, no other complaint, no fever and chill Problem List Medical Problems: (1) Displaced fracture of right femur Status: Acute (2) Fall Status: Acute (3) Left lower lobe pneumonia Status: Acute (4) Vomiting Status: Acute Review of Systems Constitutional: No chills, No fatigue, No fever, No problem reported, No sweats , No weakness, No weight loss Eyes: No diplopia, No discharge, No eye pain, No redness, No worsening of vision ENT: No dental problems, No hearing loss, No nasal symptoms, No sore throat, No tinnitus, No trouble swallowing, No unusual epistaxis Respiratory: + cough, + shortness of breath, No dyspnea at rest, No dyspnea on exertion, No hemoptysis, No sputum, No wheezing Cardiac: No PND, No chest pain, No claudication, No edema, No orthopnea, No palpitations Abdomen: No constipation, No diarrhea, No nausea, No pain, No vomiting Musculoskeletal: No calf pain, No joint pain, No muscle pain, No swelling Female : No abnormal vaginal bleeding, No dysuria, No hematuria, No incontinence, No urinary frequency, No vaginal discharge Neurologic: No balance problems, No memory loss, No numbness/tingling, No paralysis, No vertigo, No weakness Psychiatric: No anhedonism, No anxiety, No depression symptoms, No insomnia, No substance abuse Heme: No abnormal bleeding/bruising, No clotting problems, No night sweats, No swollen lymph nodes Endo: No excessive thirst, No excessive urination, No fatigue Skin: No bleeding, No color change, No itch, No new/changing skin lesions, No rash Objective Vital Signs Date Time Temp Pulse Resp B/P Pulse Ox O2 Delivery O2 Flow Rate FiO2 06/21/16 07:39 Nasal Cannula 06/21/16 07:30 36.7 75 16 128/65 98 4.0 06/21/16 04:53 36.3 85 18 127/75 98 Nasal Cannula 4.0 06/21/16 00:49 36.3 101 20 155/71 96 Nasal Cannula 4.0 06/21/16 00:10 Nasal Cannula 4.0 06/20/16 23:52 36.3 93 18 155/79 96 Nasal Cannula 4.0 06/20/16 22:57 36.4 87 16 167/79 97 Room Air 06/20/16 22:20 36.3 78 16 148/76 96 Nasal Cannula 4.0 06/20/16 21:45 Nasal Cannula 4.0 06/20/16 21:45 36.4 72 16 152/75 96 Nasal Cannula 4.0 06/20/16 21:15 80 18 115/58 96 Nasal Cannula 4 06/20/16 21:00 73 16 132/61 97 Nasal Cannula 4 06/20/16 20:45 63 16 132/61 97 Nasal Cannula 4 06/20/16 20:30 36.1 66 16 132/69 97 Nasal Cannula 4 06/20/16 20:20 63 15 143/71 96 Nasal Cannula 4 06/20/16 20:10 66 16 135/78 99 Mask 10 06/20/16 20:00 67 16 152/70 97 Mask 10 06/20/16 19:49 36.9 68 16 141/82 99 Mask 10 06/20/16 15:30 88 20 129/80 97 06/20/16 13:53 60 20 136/74 100 Nasal Cannula 06/20/16 13:00 63 06/20/16 12:19 99 Nasal Cannula 2.0 06/20/16 12:17 64 18 158/74 99 Nasal Cannula 2.0 06/20/16 11:14 36.6 60 18 160/81 88 Room Air Physical Exam General Appearance: WD/WN, no apparent distress, + obese Eyes: normal inspection, PERRL, EOMI, sclerae normal ENT: normal ENT inspection, hearing grossly normal, pharynx normal Neck: supple, no adenopathy, thyroid normal, no JVD, no carotid bruits, trachea midline Respiratory/Chest: chest non-tender, normal breath sounds, no respiratory distress, no accessory muscle use, + decreased breath sounds, + rales, + wheezing (occasional) Cardiovascular: regular rate, rhythm, no edema, no gallop, no JVD, no murmur Abdomen: normal bowel sounds, non tender, soft, no organomegaly, no pulsatile mass Extremities: normal range of motion, non-tender, normal inspection, no pedal edema, no calf tenderness, normal capillary refill, pelvis stable Neurologic/Psychiatric: oil expeller II-XII nml as tested, no motor/sensory deficits, alert, normal mood/affect, oriented x 3 Skin: normal color, warm/dry, no rash, + pertinent finding (right lateral hip skin has clean incision) Lymphatic: no adenopathy Laboratory Results Last 24 Hours Test 06/20/16 12:30 06/20/16 15:45 06/20/16 19:51 06/20/16 20:20 White Blood Count 10.76 K/uL Red Blood Count 4.22 M/uL Hemoglobin 12.3 g/dL 10.9 g/dL Hematocrit 36.7 % 32.6 % Mean Corpuscular Volume 87.0 fL Mean Corpuscular Hemoglobin 29.1 pg Mean Corpuscular Hemoglobin Concent 33.5 g/dl Platelet Count 257 K/uL Mean Platelet Volume 9.8 fL Neutrophils (%) (Auto) 71.8 % Lymphocytes (%) (Auto) 21.8 % Monocytes (%) (Auto) 4.0 % Eosinophils (%) (Auto) 2.0 % Basophils (%) (Auto) 0.2 % Neutrophils # (Auto) 7.73 K/uL Lymphocytes # (Auto) 2.35 K/uL Monocytes # (Auto) 0.43 K/uL Eosinophils # (Auto) 0.21 K/uL Basophils # (Auto) 0.02 K/uL RDW Standard Deviation 43.4 fL RDW Coefficient of Variation 13.8 % Immature Granulocyte % (Auto) 0.2 % Immature Granulocyte # (Auto) 0.02 K/uL Prothrombin Time 10.7 SECONDS Prothromb Time International Ratio 1.0 Activated Partial Thromboplast Time 27.6 SECONDS Partial Thromboplastin Ratio 1.1 Sodium Level 136 mmol/L Potassium Level 3.9 mmol/L Chloride Level 99 mmol/L Carbon Dioxide Level 31 mmol/L Anion Gap 6.0 mmol/L Blood Urea Nitrogen 8 mg/dl Creatinine 0.49 mg/dl Est Creatinine Clear Calc Drug Dose 79.5 ml/min Estimated GFR () 103.7 Estimated GFR (Non- 89.5 BUN/Creatinine Ratio 16.5 Random Glucose 145 mg/dl Estimated Average Glucose 171 mg/dl Hemoglobin A1c 7.6 % Calcium Level 8.6 mg/dl Total Bilirubin 0.5 mg/dl Direct Bilirubin < 0.1 mg/dl Aspartate Amino Transf (AST/SGOT) 16 U/L Alanine Aminotransferase (ALT/SGPT) 20 U/L Alkaline Phosphatase 103 U/L Troponin I < 0.015 ng/ml Total Protein 7.2 gm/dl Albumin 2.9 gm/dl Lipase 114 U/L Bedside Glucose 129 mg/dl 198 mg/dl 25-Hydroxy Vitamin D Total 32.9 ng/ml Test 06/21/16 06:39 06/21/16 07:47 06/21/16 08:20 White Blood Count 12.15 K/uL Red Blood Count 3.68 M/uL Hemoglobin 10.7 g/dL Hematocrit 32.6 % Mean Corpuscular Volume 88.6 fL Mean Corpuscular Hemoglobin 29.1 pg Mean Corpuscular Hemoglobin Concent 32.8 g/dl RDW Standard Deviation 44.7 fL RDW Coefficient of Variation 13.8 % Platelet Count 255 K/uL Mean Platelet Volume 10.0 fL Prothrombin Time 11.4 SECONDS Prothromb Time International Ratio 1.1 Sodium Level 132 mmol/L Potassium Level 4.6 mmol/L Chloride Level 95 mmol/L Carbon Dioxide Level 27 mmol/L Anion Gap 10.0 mmol/L Blood Urea Nitrogen 11 mg/dl Creatinine 0.63 mg/dl Est Creatinine Clear Calc Drug Dose 61.8 ml/min Estimated GFR () 95.5 Estimated GFR (Non- 82.4 BUN/Creatinine Ratio 17.6 Random Glucose 175 mg/dl Calcium Level 7.9 mg/dl Bedside Glucose 169 mg/dl Urine Color DK YELLOW Urine Appearance CLOUDY Urine pH 5.0 Urine Specific [place] 1.025 Urine Protein NEG Urine Glucose (UA) TRACE Urine Ketones NEG Urine Occult Blood NEG Urine Nitrite NEG Urine Bilirubin NEG Urine Urobilinogen NEG Urine Leukocyte Esterase MODERATE Assessment and Plan 85-year-old white female admitted to orthopedic service, hospitalist consulted for medical management femur fx - POD #1 Activity, PT OT, pain management, DVT prophylaxis, discharge plan will be per primary team Cough and sputum, recent pneumonia, history of COPD, currently is on oxygen post op, COPD - continue spiriva Has DENSON per record prior to the admission Will check two-view chest x-ray, add nebulizer treatment, will watch, Son reported patient probably in the borderline need of home oxygen but not being on home oxygen yet -vitamin D level reasonable. outpt f/u for bone health eval Uncontrolled diabetic DM with A1c >7, continue home meds, add supplemental novolog, follow BSG HTN - continue home meds, follow Continued [facility] stay due to: multiple IV medications needed Discharge planning: uncertain
[2016-06-21] MEDS ORDERED: POLYETHYLENE (MIRALAX) 17 GM PACK PO PRN (09:45)
[2016-06-21] MEDS: ALBUT/IPRATROP 3MG/0.5MG NEB 3 ML VIAL INH SCH ×3 (10:41→20:00)
--- NOTE | 2016-06-21 16:53 | Progress Note ---
Orthopedic SOAP Note Subjective Date of Service: Jun 21, 2016. Post OP Day: 1 Reports: feeling well (does not appear to be in any type of significant pain. pleasant during today's visit), pain controlled w PO medications, Denies: SOB, calf pain, chest pain, complaints, light headedness, nausea / vomiting, using SENIOR JAVA WEB APPLICATION DEVELOPER Problem List Medical Problems: (1) Displaced fracture of right femur Status: Acute (2) Fall Status: Acute (3) Left lower lobe pneumonia Status: Acute (4) Vomiting Status: Acute Objective calves soft nontender, N/V intact, capillary refill less than 2 sec., dressing C /D/I, A&O x3, toes mobile knee brace in place son present in room Date Time Temp Pulse Resp B/P Pulse Ox O2 Delivery O2 Flow Rate FiO2 06/21/16 16:00 Nasal Cannula 4.0 06/21/16 15:46 36.8 72 16 113/66 95 Nasal Cannula 4.0 06/21/16 14:44 74 16 95 Nasal Cannula 4.0 06/21/16 11:36 37.2 68 16 98/60 92 4.0 06/21/16 10:41 72 16 95 Nasal Cannula 4.0 06/21/16 10:15 71 95 06/21/16 07:39 Nasal Cannula 06/21/16 07:30 36.7 75 16 128/65 98 4.0 06/21/16 04:53 36.3 85 18 127/75 98 Nasal Cannula 4.0 06/21/16 00:49 36.3 101 20 155/71 96 Nasal Cannula 4.0 06/21/16 00:10 Nasal Cannula 4.0 06/20/16 23:52 36.3 93 18 155/79 96 Nasal Cannula 4.0 06/20/16 22:57 36.4 87 16 167/79 97 Room Air 06/20/16 22:20 36.3 78 16 148/76 96 Nasal Cannula 4.0 06/20/16 21:45 Nasal Cannula 4.0 06/20/16 21:45 36.4 72 16 152/75 96 Nasal Cannula 4.0 06/20/16 21:15 80 18 115/58 96 Nasal Cannula 4 06/20/16 21:00 73 16 132/61 97 Nasal Cannula 4 06/20/16 20:45 63 16 132/61 97 Nasal Cannula 4 06/20/16 20:30 36.1 66 16 132/69 97 Nasal Cannula 4 06/20/16 20:20 63 15 143/71 96 Nasal Cannula 4 06/20/16 20:10 66 16 135/78 99 Mask 10 06/20/16 20:00 67 16 152/70 97 Mask 10 06/20/16 19:49 36.9 68 16 141/82 99 Mask 10 Laboratory Results 24 Hours: Test 06/20/16 20:20 06/21/16 06:39 Hematocrit 32.6 % 32.6 % Hemoglobin 10.9 g/dL 10.7 g/dL Prothromb Time International Ratio 1.1 Prothrombin Time 11.4 SECONDS Assessment POD #1 s/p ORIF R distal femur periprosthetic fracture. Acute anemia blood loss. Plan Continue nonweightbearing. Resume diet, renal/vegetarian. May be out of bed to chair. Start PT/OT. Elevate, ice right lower extremity, May allow the brace to bend to maximum flexion while sitting in a chair and locked at 30 when ambulating. Continue pain control. Discontinue Jackson later today. Recheck labs tomorrow a.m., No need for transfusion at this point. DVT prophylaxis: Teds, foot pumps, start Lovenox 30 mg twice a day today and continue for 3 weeks, then switch to aspirin 325 twice a day for another 3 weeks. we will change dressing tomorrow a.m. Appreciate medicine input. Discharge planning.
[2016-06-21] MEDS ORDERED: BISACODYL 10 MG SUPP PR PRN (20:45)
[2016-06-21] MEDS ORDERED: MAGNESIUM HYDROXIDE SUSP 30 ML UDC PO PRN (20:45)
[2016-06-22] VITALS (8 sets, daily range): BP systolic 100–133; BP diastolic 61–74; PULSE 65–88; TEMP 36.7–37.2; O2SAT 94–97
[2016-06-22 07:18] LABS: HEMATOCRIT 29.1 % (37-47); MEAN CELL VOLUME 87.1 fL (80-100); MEAN CORPUSCULAR HGB CONC 33.3 g/dl (32-36); MEAN PLATELET VOLUME 10.1 fL (7.4-10.4); PLATELET COUNT 210 K/uL (130-400); RED BLOOD COUNT 3.34 M/uL (4.2-5.4); WHITE BLOOD COUNT 11.18 K/uL (4.8-10.8)
[2016-06-22 07:25] LABS: INR 1.1 (0.9-1.1); PROTHROMBIN TIME (PATIENT) 12.3 SECONDS (9.0-12.0)
[2016-06-22 07:48] LABS: BUN/CREATININE RATIO 25.6 (10-20); CALCIUM 8.5 mg/dl (8.5-10.1); CREATININE 0.47 mg/dl (0.60-1.20); POTASSIUM 4.2 mmol/L (3.5-5.1)
[2016-06-22] MEDS: ALBUT/IPRATROP 3MG/0.5MG NEB 3 ML VIAL INH SCH ×5 (07:52→20:24)
[2016-06-22] MEDS: INSULIN ASPART 100 UNITS/ML 3 ML PEN SC SCH ×4 (08:42→21:09)
[2016-06-22] MEDS: CEPHALEXIN MONOHYDRATE 500 MG CAP PO SCH ×4 (09:37→21:05)
[2016-06-22] MEDS: MULTIVITAMIN TAB PO SCH (09:38)
[2016-06-22] MEDS: PANTOprazole SOD 40 MG TAB PO SCH (09:38)
[2016-06-22] MEDS: LOSARTAN POTASSIUM 50 MG TAB PO SCH ×2 (09:38→21:05)
[2016-06-22] MEDS: METOPROLOL TARTRATE 100 MG TAB PO SCH ×2 (09:38→21:04)
[2016-06-22] MEDS: ATORVASTATIN 10 MG TAB PO SCH (09:39)
[2016-06-22] MEDS: METFORMIN HCL 500 MG TAB PO SCH ×2 (09:39→18:48)
[2016-06-22] MEDS: ENOXAPARIN 30 MG/0.3 ML SYR SQ SCH ×2 (09:39→21:03)
[2016-06-22] MEDS: CALCIUM 600MG + VIT D 400 IU TAB PO SCH (09:39)
[2016-06-22] MEDS: AMLODIPINE BESYLATE 5 MG TAB PO SCH (09:39)
[2016-06-22] MEDS: MAGNESIUM OXIDE 400 MG TAB PO SCH (09:40)
[2016-06-22] MEDS: TIOTROPIUM BROMIDE 5 PUFF/90 MCG INH INH SCH (09:40)
--- NOTE | 2016-06-22 09:41 | Progress Note ---
Orthopedic SOAP Note Subjective Date of Service: Jun 22, 2016. Post OP Day: 2 Reports: feeling well, pain controlled w PO medications, Denies: SOB, calf pain , chest pain, complaints, light headedness, nausea / vomiting, using CUSTOMER SERVICE SECURITY OFFICER Problem List Medical Problems: (1) Displaced fracture of right femur Status: Acute (2) Fall Status: Acute (3) Left lower lobe pneumonia Status: Acute (4) Vomiting Status: Acute Objective calves soft nontender, N/V intact, capillary refill less than 2 sec., dressing C /D/I, incision C/D/I, A&O x3 brace intact and opened to appropriate settings per Dr. Todd patient's family in the room with her today, always pleasant to speak with Date Time Temp Pulse Resp B/P Pulse Ox O2 Delivery O2 Flow Rate FiO2 06/22/16 07:53 80 16 96 Nasal Cannula 4.0 06/22/16 07:36 Nasal Cannula 06/22/16 07:25 37.1 80 18 133/74 97 Room Air 06/22/16 00:18 Nasal Cannula 4.0 06/22/16 00:04 37.2 75 18 123/61 94 Nasal Cannula 4.0 06/21/16 21:15 88 113/67 06/21/16 16:00 Nasal Cannula 4.0 06/21/16 15:46 36.8 72 16 113/66 95 Nasal Cannula 4.0 06/21/16 14:44 74 16 95 Nasal Cannula 4.0 06/21/16 11:36 37.2 68 16 98/60 92 4.0 06/21/16 10:41 72 16 95 Nasal Cannula 4.0 06/21/16 10:15 71 95 Laboratory Results 24 Hours: Test 06/22/16 06:23 Hematocrit 29.1 % Hemoglobin 9.7 g/dL Prothromb Time International Ratio 1.1 Prothrombin Time 12.3 SECONDS Assessment POD #2 s/p ORIF R distal femur periprosthetic fracture. Acute anemia blood loss. Plan Continue nonweightbearing. Resume diet, renal/vegetarian. May be out of bed to chair. Start PT/OT. Elevate, ice right lower extremity, May allow the brace to bend to maximum flexion while sitting in a chair and locked at 30 when ambulating. Continue pain control. Jackson has been discontinued. Voiding numerous times throughout the day. Most likely more beneficial and therapeutic to use bedside commode Lab review, H&H slightly dropped 9.7 & 29.1, No need for transfusion at this point. DVT prophylaxis: Teds, foot pumps, start Lovenox 30 mg twice a day today and continue for 3 weeks, then switch to aspirin 325 twice a day for another 3 weeks. Changed dressing this AM, tolerated well while using caution Appreciate medicine input. Discharge planning, family realizes patient will most likely need rehab upon discharge I, Dr. Todd, saw and examined the patient and agree with above findings and plan of care.
--- NOTE | 2016-06-22 09:47 | [facility] Post Operative Brief Note ---
Immediate Operative Summary Operative Date Jun 20, 2016. Pre-Operative Diagnosis Right distal periprosthetic femur fracture Post-Operative Diagnosis Same as preoperative diagnosis Procedure(s) Performed Open Reduction Internal Fixation Right Femur Fracture Surgeon Dr. Todd Service Associate Surgeon(s) Dr Alejandra Estimated Blood Loss 200ml Fluids (cc crystalloids) 1400 Specimens none Complication(s) None Disposition PCU
[2016-06-22] MEDS: INSULIN GLARGINE SOLOSTAR 100 UNITS/ML 3 ML PEN SC SCH (09:48)
[2016-06-22] MEDS ORDERED: POLYETHYLENE (MIRALAX) 17 GM PACK PO STA (12:40)
[2016-06-22] MEDS ORDERED: POLYETHYLENE (MIRALAX) 17 GM PACK PO PRN (12:45)
[2016-06-22] MEDS ORDERED: CIPROFLOXACIN HCL 0.3% OP SOLN 2.5 ML BTL OP ONE (12:45)
--- NOTE | 2016-06-22 14:09 | Progress Note ---
Subjective Date of Service: Jun 22, 2016. Subjective Pt evaluation today including: conversation w/ patient, conversation w/ family , physical exam, chart review, lab review, review of studies, conversation w/ events solutions consultant, review of inpatient medication list Sitting up in a chair,sob is better, report has constipation, pain is better controlled Problem List Medical Problems: (1) Displaced fracture of right femur Status: Acute (2) Fall Status: Acute (3) Left lower lobe pneumonia Status: Acute (4) Vomiting Status: Acute Review of Systems Constitutional: + fatigue, + weakness, No chills, No fever, No problem reported , No sweats, No weight loss Eyes: No diplopia, No discharge, No eye pain, No redness, No worsening of vision ENT: No dental problems, No hearing loss, No nasal symptoms, No sore throat, No tinnitus, No trouble swallowing, No unusual epistaxis Respiratory: No cough, No dyspnea at rest, No dyspnea on exertion, No hemoptysis, No shortness of breath, No sputum, No wheezing Cardiac: No PND, No chest pain, No claudication, No edema, No orthopnea, No palpitations Abdomen: + constipation, No diarrhea, No nausea, No pain, No vomiting Musculoskeletal: + joint pain, No calf pain, No muscle pain, No swelling Female : No abnormal vaginal bleeding, No dysuria, No hematuria, No incontinence, No urinary frequency, No vaginal discharge Neurologic: No balance problems, No memory loss, No numbness/tingling, No paralysis, No vertigo, No weakness Psychiatric: No anhedonism, No anxiety, No depression symptoms, No insomnia, No substance abuse Heme: No abnormal bleeding/bruising, No clotting problems, No night sweats, No swollen lymph nodes Endo: No excessive thirst, No excessive urination, No fatigue Skin: No bleeding, No color change, No itch, No new/changing skin lesions, No rash Objective Vital Signs Date Time Temp Pulse Resp B/P Pulse Ox O2 Delivery O2 Flow Rate FiO2 06/22/16 11:56 72 16 97 Nasal Cannula 3.0 06/22/16 07:53 80 16 96 Nasal Cannula 4.0 06/22/16 07:36 Nasal Cannula 06/22/16 07:25 37.1 80 18 133/74 97 Room Air 06/22/16 00:18 Nasal Cannula 4.0 06/22/16 00:04 37.2 75 18 123/61 94 Nasal Cannula 4.0 06/21/16 21:15 88 113/67 06/21/16 16:00 Nasal Cannula 4.0 06/21/16 15:46 36.8 72 16 113/66 95 Nasal Cannula 4.0 06/21/16 14:44 74 16 95 Nasal Cannula 4.0 Physical Exam General Appearance: WD/WN, no apparent distress, + obese Eyes: normal inspection, PERRL, EOMI, sclerae normal ENT: normal ENT inspection, hearing grossly normal, pharynx normal Neck: supple, no adenopathy, thyroid normal, no JVD, no carotid bruits, trachea midline Respiratory/Chest: chest non-tender, normal breath sounds, no respiratory distress, no accessory muscle use, + decreased breath sounds (significantly), + wheezing (vocational) Cardiovascular: regular rate, rhythm, no edema, no gallop, no JVD, no murmur Abdomen: normal bowel sounds, non tender, soft, no organomegaly, no pulsatile mass Extremities: normal capillary refill, pelvis stable, + pertinent finding ( right hip is in dressing bilateral lower extre,ity pulse positive) 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, no motor/sensory deficits, alert, normal mood/affect, oriented x 3 Skin: normal color, warm/dry, no rash Lymphatic: no adenopathy Laboratory Results Last 24 Hours Test 06/21/16 16:50 06/21/16 20:54 06/22/16 06:23 06/22/16 08:05 Bedside Glucose 136 mg/dl 192 mg/dl 112 mg/dl White Blood Count 11.18 K/uL Red Blood Count 3.34 M/uL Hemoglobin 9.7 g/dL Hematocrit 29.1 % Mean Corpuscular Volume 87.1 fL Mean Corpuscular Hemoglobin 29.0 pg Mean Corpuscular Hemoglobin Concent 33.3 g/dl RDW Standard Deviation 44.3 fL RDW Coefficient of Variation 13.8 % Platelet Count 210 K/uL Mean Platelet Volume 10.1 fL Prothrombin Time 12.3 SECONDS Prothromb Time International Ratio 1.1 Sodium Level 132 mmol/L Potassium Level 4.2 mmol/L Chloride Level 95 mmol/L Carbon Dioxide Level 31 mmol/L Anion Gap 6.0 mmol/L Blood Urea Nitrogen 12 mg/dl Creatinine 0.47 mg/dl Est Creatinine Clear Calc Drug Dose 82.8 ml/min Estimated GFR () 105.1 Estimated GFR (Non- 90.7 BUN/Creatinine Ratio 25.6 Random Glucose 109 mg/dl Calcium Level 8.5 mg/dl Test 06/22/16 11:47 Bedside Glucose 288 mg/dl Assessment and Plan 85-year-old white female admitted to orthopedic service, hospitalist consulted for medical management femur fx - ORIF R distal femur periprosthetic fracture, POD #2 Activity, PT OT, pain management, DVT prophylaxis, discharge plan will be per primary team Per recommendation of orthopedic, continue nonweightbearing. Continue Elevate, ice right lower extremity, May allow the brace to bend to maximum flexion while sitting in a chair and locked at 30 when ambulating. Possible acute blood loss anemia secondary to resend a procedure, H&H slightly dropped 9.7 & 29.1, No need for transfusion at this point. We'll follow-up tomorrow morning that Per orthopedic for DVT prophylaxis: Teds, foot pumps, start Lovenox 30 mg twice a day today and continue for 3 weeks, then switch to aspirin 325 twice a day for another 3 weeks. Possible post op hypoxia likely because of combined factors from generalized weakness and history of COPD Cough and sputum, recent pneumonia, history of COPD, currently is on oxygen post op, improving continue blessingiva Has DENSON per record prior to the admission checked two-view chest x-ray, which has no obvious pneumonia, or pleural effusion or pulmonary edema Continue nebulizer treatment, Son reported patient probably in the borderline need of home oxygen but not being on home oxygen yet -vitamin D level reasonable. outpt f/u for bone health eval Uncontrolled diabetic DM with A1c >7, continue home meds, add supplemental novolog, follow BSG HTN - continue home meds, follow Continued [facility] stay due to: multiple IV medications needed Discharge planning: uncertain
[2016-06-22] MEDS: ACETAMINOPHEN 325 MG TAB PO PRN (18:49)
[2016-06-22] MEDS: CIPROFLOXACIN HCL 0.3% OP SOLN 2.5 ML BTL OP SCH (21:03)
[2016-06-23 07:05] VITALS: BP_SYST 113; BP_SYST 122; BP_DIAS 68; BP_DIAS 78; PULSE 66; PULSE 80; TEMP 36.6; TEMP 36.7; O2SAT 90
[2016-06-23 07:31] LABS: HEMATOCRIT 30.1 % (37-47); MEAN CELL VOLUME 88.3 fL (80-100); MEAN CORPUSCULAR HEMOGLOBIN 28.7 pg (25-34); MEAN CORPUSCULAR HGB CONC 32.6 g/dl (32-36); MEAN PLATELET VOLUME 9.7 fL (7.4-10.4); PLATELET COUNT 225 K/uL (130-400); RED BLOOD COUNT 3.41 M/uL (4.2-5.4); WHITE BLOOD COUNT 9.98 K/uL (4.8-10.8)
[2016-06-23 07:43] LABS: INR 1.1 (0.9-1.1); PROTHROMBIN TIME (PATIENT) 11.4 SECONDS (9.0-12.0)
[2016-06-23] MEDS: INSULIN ASPART 100 UNITS/ML 3 ML PEN SC SCH ×4 (08:00→21:00)
[2016-06-23 08:10] VITALS: PULSE 62; O2SAT 90
[2016-06-23] MEDS: ALBUT/IPRATROP 3MG/0.5MG NEB 3 ML VIAL INH SCH (08:10)
[2016-06-23] MEDS: TIOTROPIUM BROMIDE 5 PUFF/90 MCG INH INH SCH (09:09)
[2016-06-23] MEDS: CEPHALEXIN MONOHYDRATE 500 MG CAP PO SCH ×4 (09:11→21:11)
[2016-06-23] MEDS: MAGNESIUM OXIDE 400 MG TAB PO SCH (09:12)
[2016-06-23] MEDS: PANTOprazole SOD 40 MG TAB PO SCH (09:12)
[2016-06-23] MEDS: MULTIVITAMIN TAB PO SCH (09:13)
[2016-06-23] MEDS: METOPROLOL TARTRATE 100 MG TAB PO SCH ×2 (09:13→21:11)
[2016-06-23] MEDS: LOSARTAN POTASSIUM 50 MG TAB PO SCH ×2 (09:13→21:10)
[2016-06-23] MEDS: AMLODIPINE BESYLATE 5 MG TAB PO SCH (09:14)
[2016-06-23] MEDS: METFORMIN HCL 500 MG TAB PO SCH ×2 (09:14→18:46)
[2016-06-23] MEDS: CALCIUM 600MG + VIT D 400 IU TAB PO SCH (09:14)
[2016-06-23] MEDS: ATORVASTATIN 10 MG TAB PO SCH (09:15)
[2016-06-23] MEDS: CIPROFLOXACIN HCL 0.3% OP SOLN 2.5 ML BTL OP SCH ×2 (09:16→21:13)
[2016-06-23] MEDS: ENOXAPARIN 30 MG/0.3 ML SYR SQ SCH ×2 (09:24→21:13)
[2016-06-23] MEDS: INSULIN GLARGINE SOLOSTAR 100 UNITS/ML 3 ML PEN SC SCH (09:34)
[2016-06-23 11:23] VITALS: PULSE 62; O2SAT 90
[2016-06-23] MEDS: DOCUSATE SODIUM 100 MG CAP PO PRN (11:48)
[2016-06-23] MEDS: ACETAMINOPHEN 325 MG TAB PO PRN ×2 (11:49→21:09)
[2016-06-23] MEDS ORDERED: ALBUT/IPRATROP 3MG/0.5MG NEB 3 ML VIAL INH PRN (12:00)
--- NOTE | 2016-06-23 13:44 | Hospitalist Progress Note ---
Hospitalist Progress Note Date of Service Jun 23, 2016. Subjective Pt evaluation today including: conversation w/ patient, physical exam, chart review, lab review, review of studies, conversation w/ reporting process consultant, review of inpatient medication list Had complaint of right hip/pelvic pain just after having physical therapy. I suspect this is not unexpected given her fracture and surgical correction. No obvious urinary symptoms. I spoke with ortho PA and we discussed case. I feel patient is medically stable if is to be discharged today. Additional Comments: A 10 system review was performed and all were negative. Positives were placed in the subjective section. Objective Vital Signs Date Time Temp Pulse Resp B/P Pulse Ox O2 Delivery O2 Flow Rate FiO2 06/23/16 11:23 62 16 90 Nasal Cannula 3.0 06/23/16 08:10 62 16 90 Nasal Cannula 3.0 06/23/16 07:30 Nasal Cannula 3.0 06/23/16 07:05 36.6 66 20 113/68 90 Room Air 06/22/16 23:51 Nasal Cannula 3.0 06/22/16 23:44 36.7 65 16 100/61 97 Nasal Cannula 3.0 06/22/16 21:01 37.0 85 116/68 06/22/16 20:24 88 16 94 Nasal Cannula 3.0 06/22/16 15:30 Nasal Cannula 3.0 06/22/16 15:22 37.2 84 18 129/68 97 Nasal Cannula 4.0 Physical Exam Notes: GEN: Awake, alert. Not in acute distress HEENT: Tm's intact, no inflammation, EOMI, PERRLA, MMM Neck: Soft, supple Lungs: CTA b/l, no r/r + mild expiratory wheezes. Heart: REG, nrl S1S2 without murmurs, rubs or gallops Abdomen: Soft, NT, ND, + BS EXT: No C/C/E NEURO: CN's II-XII grossly intact, non-focal Skin: warm, dry, no rashes PSYCH: pleasant, cooperative. Laboratory Results Last 24 Hours Test 06/22/16 16:39 06/22/16 20:36 06/23/16 07:20 06/23/16 08:21 Bedside Glucose 189 mg/dl 200 mg/dl 74 mg/dl White Blood Count 9.98 K/uL Red Blood Count 3.41 M/uL Hemoglobin 9.8 g/dL Hematocrit 30.1 % Mean Corpuscular Volume 88.3 fL Mean Corpuscular Hemoglobin 28.7 pg Mean Corpuscular Hemoglobin Concent 32.6 g/dl RDW Standard Deviation 44.9 fL RDW Coefficient of Variation 13.9 % Platelet Count 225 K/uL Mean Platelet Volume 9.7 fL Prothrombin Time 11.4 SECONDS Prothromb Time International Ratio 1.1 Test 06/23/16 12:07 Bedside Glucose 141 mg/dl Assessment and Plan 1) Right femur fx - ORIF R distal femur periprosthetic fracture, POD #3 2) COPD - chronic condition 3) Type II Dm - sugar well controlled this am. 4) HTN - Well controlled. 5) Anemia post-procedural/dilutional - stable at 9.8 today. 6) Leukocyte esterase moderate in urine with + WBCs - I do not believe patient has UTI. Bacteria were +1 and nitrite and blood was neg. She is asymptomatic. I feel no need to treat. 7) DVT prophylaxis - TEDs, SCDs, and Lovenox. Medically stable for discharge at ortho's discretion.
--- NOTE | 2016-06-23 14:27 | DIAGNOSTIC IMAGING REPORT ---
RIGHT PELVIS/UNILATERAL HIP 2-3VIEWS CLINICAL HISTORY: Right hip/pelvic bone pain Right pain COMPARISON: None. DISCUSSION: Limited study due to body habitus as well as patient condition. Patient is status post a plate placement of the mid right femoral shaft. A major osseous abnormality by plain film criteria is not seen. Nevertheless, resolution is limited. There is no evidence for soft tissue swelling. IMPRESSION: Near nondiagnostic study. Although no major bony abnormalities are appreciated, it may be prudent to obtain a CT of the pelvis and hips for follow-up Electronically signed by: Blaze Felix M.D. 06/23/2016 2:25 PM Dictated Date/Time: 06/23/2016 2:23 PM
[2016-06-23 15:30] VITALS: BP 123/70; PULSE 69; TEMP 36.9; O2SAT 95
[2016-06-23] MEDS ORDERED: LVNIS30 SQ (16:05)
[2016-06-23] MEDS ORDERED: ACET500T57 PO (16:05)
--- NOTE | 2016-06-23 16:14 | Discharge Instructions ---
Discharge Instructions Admission Reason for Admission: Diabetes Mellitus,Fall,Hypertension,Stacey- Discharge Discharge Diagnosis / Problem: s/p open reduction internal fixation right distal femur periprosthetic fx Discharge Goals Goal(s): Decrease discomfort, Improve function, Increase independence Activity Recommendations Activity Level: Self Positioning, OOB In Chair, Assistance Required, Bedside Commode Therapies: Physical Therapy, Weight Bearing Status (nonweightbearing right lower extremity), Occupational Therapy Weightbearing Status: Right non-weightbearing Lifting Limitations: none Exercise/Sports Limitations: none . Additional Information Patient informed of condition: Yes Advance Directives: Yes DNR: No Level of Care: Acute Rehab Communicable Disease: No Prognosis: Stable Jackson Catheter: No Instructions / Follow-Up Instructions / Follow-Up New Medicine: * You will likely be taking one or more of these medications: 1. Tylenol - pain medication. Take one tablets every six hours to lessen your pain. 2. Iron Sulfate/Vitamin C - Take three times each day for 2 weeks after surgery to help you replace the blood lost during surgery. 3. Lovenox - Thins your blood to lessen the chance of forming a blood clot. Use every AM & PM x 3 weeks 4. Aspirin - Thins your blood to lessen the chance of forming a blood clot and should be started after the Lovenox is stopped. Use 32mg BID for another 3 weeks. VERY IMPORTANT TO READ AND REVIEW" Pain: * The immediate post-operative period after surgery is often quite painful. * You have Tylenol for pain, which has been working very well while in the hospital post-operative. You should take it, as directed, when you need it, you may need to take it before physical therapy and before going to bed. Pain that interferes with sleep is very common and can last several months. * You will likely need pain medicine for the first four to six weeks. It will not stop all of the pain. The pain will lessen and as you feel better, you may change to milder pain medicine such as Tylenol. TEDs/Elastic Stockings: * The white elastic stockings help limit swelling and prevent blood clots from forming in your legs. The more you wear them, the more they work. * Wear them for six weeks. Things to Watch For: * Drainage from the incision site that occurs more than one week after your surgery. * Severely increased leg pain or swelling. * Increased redness at the incision site. * Fever above 102 degrees Fahrenheit. * Unusual chest pain or shortness of breath. * Unusual pain or burning with urination. Call [facility] at with any of the above problems or if you have any questions about your medicines or recovery. Avoid all tobacco products. If you need help to stop smoking, call [place]'s FREE QUITLINE at . This is a free call. Current Hospital Diet Patient's current hospital diet: Vegetarian Diet, Diabetes Type 2 Diet Discharge Diet Recommended Diet: Diabetes Type 2 Diet, Vegetarian Diet Procedures Procedures Performed: Open Reduction Internal Fixation Right Femur Fracture Pending Studies Studies pending at discharge: no Physician Orders On Transfer Additional Orders: Follow up with Stephan Lopez PA-C at [facility] on 07/07/16 at 10: 15am for staple removal of the right lower extremity. Any questions about this appointment please notify our office at [phone], thank you. Continue nonweightbearing. Resume diet, renal/vegetarian. May be out of bed to chair. Start PT/OT. Elevate, ice right lower extremity, May allow the brace to bend to maximum flexion while sitting in a chair and locked at 30 when ambulating. Continue pain control. Jackson has been discontinued. Voiding numerous times throughout the day. Most likely more beneficial and therapeutic to use bedside commode Lab review, H&H slightly dropped 9.7 & 29.1, No need for transfusion at this point. DVT prophylaxis: Teds, foot pumps, start Lovenox 30 mg twice a day today and continue for 3 weeks, then switch to aspirin 325 twice a day for another 3 weeks. Keep incision covered with ABD's and JOHN wrap POLST Discussion: without POLST completion Laboratory Results Hemoglobin A1c Test 06/20/16 12:30 Range/Units Estimated Average Glucose 171 mg/dl Hemoglobin A1c 7.6 H 4.5-5.6 % Medical Emergencies . Who to Call and When: Medical Emergencies: If at any time you feel your situation is an emergency, please call 911 immediately. . Non-Emergent Contact Non-Emergency issues call your: Primary Care Provider . . "Provider Documentation" section prepared by Stephan Lopez. Core Measure Problem Core Measures: VTE VTE Core Measures Date of VTE Diagnosis: Jun 23, 2016 Time of VTE Diagnosis: 16:14 Reason no anticoag overlap I/P: Treatment provided - N/A Reason no anticoag overlap @DC: Treatment provided - N/A [place] Drug Monitoring Program Search Results: no issues identified
--- NOTE | 2016-06-23 18:05 | Orthopedic Progress Note ---
Orthopedic Progress Note Date of Service Jun 23, 2016. Subjective Post OP Day: 3 Reports: complaints (of thigh pain earlier when working with PT.), feeling well Objective calves soft nontender, N/V intact, dressing C/D/I Date Time Temp Pulse Resp B/P Pulse Ox O2 Delivery O2 Flow Rate FiO2 06/23/16 17:51 Nasal Cannula 3.0 06/23/16 15:30 36.9 69 16 123/70 95 Nasal Cannula 3.0 06/23/16 11:23 62 16 90 Nasal Cannula 3.0 06/23/16 08:10 62 16 90 Nasal Cannula 3.0 06/23/16 07:30 Nasal Cannula 3.0 06/23/16 07:05 36.6 66 20 113/68 90 Room Air 06/22/16 23:51 Nasal Cannula 3.0 06/22/16 23:44 36.7 65 16 100/61 97 Nasal Cannula 3.0 06/22/16 21:01 37.0 85 116/68 06/22/16 20:24 88 16 94 Nasal Cannula 3.0 Laboratory Results 24 Hours: Test 06/23/16 07:20 Hematocrit 30.1 % Hemoglobin 9.8 g/dL Prothromb Time International Ratio 1.1 Prothrombin Time 11.4 SECONDS Additional Notes: Pelvis radiographs: Poor study, but no new fracture or dislocation. Evidence of resent ORIF R femur. Assessment & Plan Assessment: POD #3 s/p ORIF R distal femur periprosthetic fracture. Acute anemia blood loss. Plan: Continue nonweightbearing. Right thigh pain related to recent ORIF, expected. Resume diet, renal/vegetarian. May be out of bed to chair. Start PT/OT. Elevate, ice right lower extremity, May allow the brace to bend to maximum flexion while sitting in a chair and locked at 30 when ambulating. Continue pain control. Jackson has been discontinued. Voiding numerous times throughout the day. Most likely more beneficial and therapeutic to use bedside commode. Noted UTI being treated with Keflex per medicine team. Lab review, H&H slightly dropped 9.7 & 29.1, No need for transfusion at this point. DVT prophylaxis: Teds, foot pumps, start Lovenox 30 mg twice a day today and continue for 3 weeks, then switch to aspirin 325 twice a day for another 3 weeks. Changed dressing this AM, tolerated well while using caution Appreciate medicine input. Discharge planning, [facility], awaiting insurance approval.
[2016-06-23] MEDS: IPRATROPIUM BROMIDE/ALBUTEROL respimat INH INH SCH ×2 (18:49→21:13)
[2016-06-23 23:06] VITALS: BP 104/64; PULSE 77; TEMP 37.1; O2SAT 98
[2016-06-24 04:01] LABS: URINE APPEARANCE CLEAR (CLEAR); URINE BILIRUBIN NEG (NEG); URINE COLOR YELLOW; URINE EPITHELIAL CELL AUTO >30 /lpf (0-5); URINE NITRITE NEG (NEG); URINE SPECIFIC GRAVITY 1.008 (1.000-1.030); UROBILINOGEN NEG (NEG)
[2016-06-24 04:06] LABS: MANUAL MICROSCOPIC REQUIRED? NO; REVIEW REQ? NO
[2016-06-24] MEDS: INSULIN ASPART 100 UNITS/ML 3 ML PEN SC SCH ×4 (08:00→21:00)
[2016-06-24 08:17] LABS: MEAN CELL VOLUME 85.9 fL (80-100); MEAN CORPUSCULAR HEMOGLOBIN 28.2 pg (25-34); MEAN CORPUSCULAR HGB CONC 32.9 g/dl (32-36); MEAN PLATELET VOLUME 9.5 fL (7.4-10.4); PLATELET COUNT 299 K/uL (130-400); RED BLOOD COUNT 3.26 M/uL (4.2-5.4); WHITE BLOOD COUNT 7.38 K/uL (4.8-10.8)
[2016-06-24 08:20] VITALS: BP 124/76; PULSE 64; TEMP 36.4; O2SAT 90
[2016-06-24 08:22] LABS: PROTHROMBIN TIME (PATIENT) 10.7 SECONDS (9.0-12.0)
--- NOTE | 2016-06-24 08:40 | Orthopedic Progress Note ---
Orthopedic Progress Note Date of Service Jun 24, 2016. Subjective Post OP Day: 4 Reports: feeling well Additional Notes: When sitting son-in-law states, she is comfortable bending knee to 90 degrees. Objective calves soft nontender, N/V intact, incision C/D/I, A&O x3 Date Time Temp Pulse Resp B/P Pulse Ox O2 Delivery O2 Flow Rate FiO2 06/23/16 23:43 Nasal Cannula 3.0 06/23/16 23:06 37.1 77 16 104/64 98 Nasal Cannula 3.0 06/23/16 17:51 Nasal Cannula 3.0 06/23/16 15:30 36.9 69 16 123/70 95 Nasal Cannula 3.0 06/23/16 11:23 62 16 90 Nasal Cannula 3.0 Laboratory Results 24 Hours: Test 06/24/16 07:55 Assessment & Plan Assessment: POD #4 s/p ORIF R distal femur periprosthetic fracture. Acute anemia blood loss, stable. Plan: Continue nonweightbearing. Right thigh pain related to recent ORIF, expected. Resume diet, renal/vegetarian. May be out of bed to chair. Start PT/OT. Elevate, ice right lower extremity, May allow the brace to bend to maximum flexion while sitting in a chair and locked at 30 when ambulating. Continue pain control. Jackson discontinued POD #1. Confirming UTI with Ua and agree with plan per medicine team. Lab pending. DVT prophylaxis: Teds, foot pumps, start Lovenox 30 mg twice a day today and continue for 3 weeks, then switch to aspirin 325 twice a day for another 3 weeks. Changed dressing this AM. Appreciate medicine input. Discharge planning, [facility], awaiting insurance approval.
[2016-06-24] MEDS: MULTIVITAMIN TAB PO SCH (08:43)
[2016-06-24] MEDS: METFORMIN HCL 500 MG TAB PO SCH ×2 (08:43→19:43)
[2016-06-24] MEDS: CALCIUM 600MG + VIT D 400 IU TAB PO SCH (08:44)
[2016-06-24] MEDS: ATORVASTATIN 10 MG TAB PO SCH (08:44)
[2016-06-24] MEDS: DOCUSATE SODIUM 100 MG CAP PO PRN (08:44)
[2016-06-24] MEDS: METOPROLOL TARTRATE 100 MG TAB PO SCH ×2 (08:45→21:01)
[2016-06-24] MEDS: AMLODIPINE BESYLATE 5 MG TAB PO SCH (08:45)
[2016-06-24] MEDS: PANTOprazole SOD 40 MG TAB PO SCH (08:45)
[2016-06-24] MEDS: CEPHALEXIN MONOHYDRATE 500 MG CAP PO SCH ×4 (08:46→21:02)
[2016-06-24] MEDS: MAGNESIUM OXIDE 400 MG TAB PO SCH (08:46)
[2016-06-24] MEDS: ACETAMINOPHEN 325 MG TAB PO PRN ×2 (08:46→18:20)
[2016-06-24] MEDS: LOSARTAN POTASSIUM 50 MG TAB PO SCH ×2 (08:46→21:01)
[2016-06-24] MEDS: CIPROFLOXACIN HCL 0.3% OP SOLN 2.5 ML BTL OP SCH ×2 (08:47→21:02)
[2016-06-24] MEDS: TIOTROPIUM BROMIDE 5 PUFF/90 MCG INH INH SCH (08:48)
[2016-06-24] MEDS: ENOXAPARIN 30 MG/0.3 ML SYR SQ SCH ×2 (08:48→19:44)
[2016-06-24] MEDS: IPRATROPIUM BROMIDE/ALBUTEROL respimat INH INH SCH ×4 (08:48→21:02)
[2016-06-24] MEDS: INSULIN GLARGINE SOLOSTAR 100 UNITS/ML 3 ML PEN SC SCH (08:53)
[2016-06-24 09:14] VITALS: O2SAT 90
[2016-06-24 12:49] VITALS: BP 102/64; PULSE 64; TEMP 36.8; O2SAT 98
[2016-06-24 15:15] VITALS: BP 106/66; PULSE 70; TEMP 37; O2SAT 95
--- NOTE | 2016-06-24 19:45 | Hospitalist Progress Note ---
Hospitalist Progress Note Date of Service Jun 24, 2016. Subjective Pt evaluation today including: conversation w/ patient, conversation w/ family , physical exam, chart review, lab review, review of studies, review of inpatient medication list Nursing reported that patient had sounded congested on lung exam this am. I noted too that patient has continued to require oxygen which she normally does not use. I did speak to the son-in-law about acquiring CT scan of the lungs for evaluation for PE vs. pneumonia. He agrees, but requested that I talk to the daughter for approval. Additional Comments: A 10 system review was performed and all were negative. Positives were placed in the subjective section. Objective Vital Signs Date Time Temp Pulse Resp B/P Pulse Ox O2 Delivery O2 Flow Rate FiO2 06/24/16 15:30 Nasal Cannula 3.0 06/24/16 15:15 37.0 70 20 106/66 95 Nasal Cannula 3.0 06/24/16 12:49 36.8 64 20 102/64 98 Nasal Cannula 3.0 06/24/16 09:14 90 Nasal Cannula 3.0 06/24/16 08:20 36.4 64 20 124/76 90 Nasal Cannula 3.0 06/24/16 07:20 Nasal Cannula 3.0 06/23/16 23:43 Nasal Cannula 3.0 06/23/16 23:06 37.1 77 16 104/64 98 Nasal Cannula 3.0 Physical Exam Notes: GEN: Awake, alert. Not in acute distress HEENT: Tm's intact, no inflammation, EOMI, PERRLA, MMM Neck: Soft, supple Lungs: + crackles in the lower lung sloan b/l with mild-mod exp wheezes b/l. Heart: REG, nrl S1S2 without murmurs, rubs or gallops Abdomen: Soft, NT, ND, + BS EXT: No C/C/E NEURO: CN's II-XII grossly intact, non-focal Skin: warm, dry, no rashes PSYCH: pleasant. Laboratory Results Last 24 Hours Test 06/23/16 21:09 06/24/16 00:00 06/24/16 07:49 06/24/16 07:55 Bedside Glucose 180 mg/dl 97 mg/dl Urine Color YELLOW Urine Appearance CLEAR Urine pH 6.0 Urine Specific [place] 1.008 Urine Protein NEG Urine Glucose (UA) NEG Urine Ketones NEG Urine Occult Blood NEG Urine Nitrite NEG Urine Bilirubin NEG Urine Urobilinogen NEG Urine Leukocyte Esterase TRACE Urine WBC (Auto) 1-5 /hpf Urine RBC (Auto) 0-4 /hpf Urine Hyaline Casts (Auto) 0 /lpf Urine Epithelial Cells (Auto) >30 /lpf Urine Bacteria (Auto) 1+ White Blood Count 7.38 K/uL Red Blood Count 3.26 M/uL Hemoglobin 9.2 g/dL Hematocrit 28.0 % Mean Corpuscular Volume 85.9 fL Mean Corpuscular Hemoglobin 28.2 pg Mean Corpuscular Hemoglobin Concent 32.9 g/dl RDW Standard Deviation 42.9 fL RDW Coefficient of Variation 13.7 % Platelet Count 299 K/uL Mean Platelet Volume 9.5 fL Prothrombin Time 10.7 SECONDS Prothromb Time International Ratio 1.0 Test 06/24/16 11:33 2 17:10 Bedside Glucose 105 mg/dl 156 mg/dl Assessment and Plan 1) Right femur fx - ORIF R distal femur periprosthetic fracture, POD #4 2) COPD - chronic condition 3) Type II Dm - coverage. 4) HTN - Well controlled. 5) Anemia post-procedural/dilutional 6) Hypoxemia - I am interested to order Ct scan of the lungs to evaluate for pneumonia and PE. Will discuss with daughter to get approval. 7) DVT prophylaxis - TEDs, SCDs, and Lovenox. Awaiting insurance approval for discharge plan.
[2016-06-24] MEDS ORDERED: OPTIRAY 320 IV PRN (20:15)
[2016-06-24 20:58] VITALS: BP 107/62; PULSE 70
--- NOTE | 2016-06-24 21:32 | DIAGNOSTIC IMAGING REPORT ---
CT ANGIOGRAM OF THE CHEST CLINICAL HISTORY: Atypical chest pain COMPARISON STUDY: Chest x-ray dated 06/20/2016 TECHNIQUE: Following the IV administration of 97 mL of Optiray-320, CT angiogram of the thorax was performed from the thoracic inlet to the lung bases utilizing the pulmonary embolus protocol. Images are reviewed in the axial, sagittal, and coronal planes. IV contrast was administered without complication. MIP imaging was performed. CT DOSE: 381.20 mGy.cm FINDINGS: No pathologically enlarged axillary mediastinal or hilar lymph nodes were visualized. There was no evidence of thoracic aortic dilatation. There were no pulmonary artery filling defects to indicate acute pulmonary embolism. The heart is mildly enlarged. There are coronary artery calcifications present. There are trace bilateral pleural effusions. There are bibasal atelectatic changes. There is mild lower lobe bronchial wall thickening. IMPRESSION: 1. No CT evidence of acute pulmonary embolism 2. Trace pleural effusions 3. Mild lower lobe bronchial wall thickening 4. Bibasal atelectasis Electronically signed by: Nile Zhou M.D. 06/24/2016 9:31 PM Dictated Date/Time: 06/24/2016 9:28 PM
[2016-06-24] MEDS ORDERED: NURSING VERBAL MED ORDER ONE (22:15)
[2016-06-24 22:45] VITALS: BP 115/70; PULSE 63; TEMP 36.4; O2SAT 95
[2016-06-25] MEDS: ACETAMINOPHEN 325 MG TAB PO PRN ×3 (01:04→21:09)
[2016-06-25 07:46] LABS: HEMATOCRIT 26.7 % (37-47); MEAN CELL VOLUME 86.1 fL (80-100); MEAN CORPUSCULAR HEMOGLOBIN 28.4 pg (25-34); MEAN PLATELET VOLUME 8.8 fL (7.4-10.4); PLATELET COUNT 312 K/uL (130-400); WHITE BLOOD COUNT 6.44 K/uL (4.8-10.8)
[2016-06-25 07:54] LABS: PROTHROMBIN TIME (PATIENT) 10.2 SECONDS (9.0-12.0)
[2016-06-25 08:00] VITALS: BP 138/71; PULSE 74; TEMP 36.5; O2SAT 96
[2016-06-25] MEDS: INSULIN ASPART 100 UNITS/ML 3 ML PEN SC SCH ×4 (08:00→21:00)
[2016-06-25 08:21] LABS: BUN/CREATININE RATIO 27.7 (10-20); CALCIUM 8.3 mg/dl (8.5-10.1); CREATININE 0.39 mg/dl (0.60-1.20); POTASSIUM 4.4 mmol/L (3.5-5.1)
[2016-06-25 08:24] LABS: ALB/GLOB RATIO 0.5 (0.9-2)
[2016-06-25] MEDS: ATORVASTATIN 10 MG TAB PO SCH (09:00)
[2016-06-25] MEDS: IPRATROPIUM BROMIDE/ALBUTEROL respimat INH INH SCH ×4 (09:15→21:09)
[2016-06-25] MEDS: ENOXAPARIN 30 MG/0.3 ML SYR SQ SCH ×2 (09:16→21:06)
[2016-06-25] MEDS: CEPHALEXIN MONOHYDRATE 500 MG CAP PO SCH (09:19)
[2016-06-25] MEDS: CALCIUM 600MG + VIT D 400 IU TAB PO SCH (09:21)
[2016-06-25] MEDS: METOPROLOL TARTRATE 100 MG TAB PO SCH ×2 (09:21→21:12)
[2016-06-25] MEDS: LOSARTAN POTASSIUM 50 MG TAB PO SCH ×2 (09:21→21:12)
[2016-06-25] MEDS: MULTIVITAMIN TAB PO SCH (09:22)
[2016-06-25] MEDS: AMLODIPINE BESYLATE 5 MG TAB PO SCH (09:22)
[2016-06-25] MEDS: PANTOprazole SOD 40 MG TAB PO SCH (09:22)
[2016-06-25] MEDS: MAGNESIUM OXIDE 400 MG TAB PO SCH (09:22)
[2016-06-25] MEDS: TIOTROPIUM BROMIDE 5 PUFF/90 MCG INH INH SCH (09:23)
[2016-06-25] MEDS: CIPROFLOXACIN HCL 0.3% OP SOLN 2.5 ML BTL OP SCH ×2 (09:23→21:09)
[2016-06-25] MEDS: INSULIN GLARGINE SOLOSTAR 100 UNITS/ML 3 ML PEN SC SCH (09:29)
--- NOTE | 2016-06-25 10:37 | Orthopedic Progress Note ---
Orthopedic Progress Note Date of Service Jun 25, 2016. Subjective Post OP Day: 5 Additional Notes: Improving, L leg getting stronger, some right knee pain. Objective calves soft nontender, N/V intact, splint C/D/I, A&O x3 Date Time Temp Pulse Resp B/P Pulse Ox O2 Delivery O2 Flow Rate FiO2 06/25/16 08:10 Nasal Cannula 3.0 06/25/16 08:00 36.5 74 16 138/71 96 2.0 06/24/16 23:25 Nasal Cannula 3.0 06/24/16 22:45 36.4 63 16 115/70 95 Nasal Cannula 3.0 06/24/16 20:58 70 107/62 06/24/16 15:30 Nasal Cannula 3.0 06/24/16 15:15 37.0 70 20 106/66 95 Nasal Cannula 3.0 06/24/16 12:49 36.8 64 20 102/64 98 Nasal Cannula 3.0 Laboratory Results 24 Hours: Date/Time Source Procedure Growth Status 06/24/16 00:00 Urine , Clean Catch Urine Culture - Preliminary Escherichia Coli Resulted Test 06/25/16 07:36 Hematocrit 26.7 % Hemoglobin 8.8 g/dL Prothromb Time International Ratio 1.0 Prothrombin Time 10.2 SECONDS Additional Notes: Chest CT: IMPRESSION: 1. No CT evidence of acute pulmonary embolism 2. Trace pleural effusions 3. Mild lower lobe bronchial wall thickening 4. Bibasal atelectasis Assessment & Plan Assessment: POD #5 s/p ORIF R distal femur periprosthetic fracture. Acute anemia blood loss, stable. UTI- E. Coli. Plan: Continue nonweightbearing. Right thigh pain related to recent ORIF, expected. Resume diet, renal/vegetarian. May be out of bed to chair. Start PT/OT. Elevate, ice right lower extremity, May allow the brace to bend to maximum flexion while sitting in a chair and locked at 30 when ambulating. Continue pain control. Jackson discontinued POD #1. Confirming UTI with Ua -E. coli defer to per medicine team. Hgb stable 8.8 DVT prophylaxis: Teds, foot pumps, start Lovenox 30 mg twice a day today and continue for 3 weeks, then switch to aspirin 325 twice a day for another 3 weeks. Changed dressing this AM. Appreciate medicine input. Discharge planning, [facility], awaiting insurance approval.
[2016-06-25] MEDS: CIPROFLOXACIN / D5W 400 MG in PREMIXED IN D5W 200 ML IV SCH (12:53)
[2016-06-25 16:02] VITALS: BP 114/65; PULSE 66; TEMP 36.8; O2SAT 96
--- NOTE | 2016-06-25 18:52 | Hospitalist Progress Note ---
Hospitalist Progress Note Date of Service Jun 25, 2016. Subjective Pt evaluation today including: conversation w/ patient, conversation w/ family , physical exam, chart review, lab review, review of studies, conversation w/ life skills consultant, review of inpatient medication list The patient was resting comfortably during my visit. The patients son-in-law tells me that the patient is moving around a bit better. I was pleased to report that the CT chest did not show any blood clots/PE or pneumonia. She did have E.coli growing in the urine even though she had been taking Keflex for days. I switched her to cipro which I will give in IV form while in the hospital , but she can be switched to oral at any point even if she is discharged tomorrow. No fever or chills, No cough. No chest pain. Additional Comments: A 10 system review was performed and all were negative. Positives were placed in the subjective section. Objective Vital Signs Date Time Temp Pulse Resp B/P Pulse Ox O2 Delivery O2 Flow Rate FiO2 06/25/16 16:02 36.8 66 17 114/65 96 Nasal Cannula 3.0 06/25/16 15:30 Nasal Cannula 3.0 06/25/16 08:10 Nasal Cannula 3.0 06/25/16 08:00 36.5 74 16 138/71 96 2.0 06/24/16 23:25 Nasal Cannula 3.0 06/24/16 22:45 36.4 63 16 115/70 95 Nasal Cannula 3.0 06/24/16 20:58 70 107/62 Physical Exam Notes: GEN: Awake, alert. Not in acute distress HEENT: Tm's intact, no inflammation, EOMI, PERRLA, MMM Neck: Soft, supple Lungs: CTA b/l, no r/r/w +decreased breath sounds at the bases b/l. Heart: REG, nrl S1S2 without murmurs, rubs or gallops Abdomen: Soft, NT, ND, + BS EXT: No C/C/E NEURO: CN's II-XII grossly intact, non-focal Skin: warm, dry, no rashes PSYCH: pleasant, cooperative. Laboratory Results Last 24 Hours Test 06/24/16 21:01 06/25/16 07:36 06/25/16 08:32 06/25/16 12:02 Bedside Glucose 174 mg/dl 81 mg/dl 211 mg/dl White Blood Count 6.44 K/uL Red Blood Count 3.10 M/uL Hemoglobin 8.8 g/dL Hematocrit 26.7 % Mean Corpuscular Volume 86.1 fL Mean Corpuscular Hemoglobin 28.4 pg Mean Corpuscular Hemoglobin Concent 33.0 g/dl RDW Standard Deviation 43.1 fL RDW Coefficient of Variation 13.7 % Platelet Count 312 K/uL Mean Platelet Volume 8.8 fL Prothrombin Time 10.2 SECONDS Prothromb Time International Ratio 1.0 Sodium Level 132 mmol/L Potassium Level 4.4 mmol/L Chloride Level 96 mmol/L Carbon Dioxide Level 34 mmol/L Anion Gap 2.0 mmol/L Blood Urea Nitrogen 11 mg/dl Creatinine 0.39 mg/dl Est Creatinine Clear Calc Drug Dose 99.8 ml/min Estimated GFR () 111.8 Estimated GFR (Non- 96.4 BUN/Creatinine Ratio 27.7 Random Glucose 85 mg/dl Calcium Level 8.3 mg/dl Total Bilirubin 0.6 mg/dl Aspartate Amino Transf (AST/SGOT) 19 U/L Alanine Aminotransferase (ALT/SGPT) 15 U/L Alkaline Phosphatase 89 U/L Total Protein 5.8 gm/dl Albumin 1.8 gm/dl Globulin 4.0 gm/dl Albumin/Globulin Ratio 0.5 Test 06/25/16 17:01 Bedside Glucose 160 mg/dl Assessment and Plan 1) Right femur fx - ORIF R distal femur periprosthetic fracture, POD #5 2) COPD - chronic condition, encouraged deep breathing. 3) Type II Dm - Insulin sliding scale and Lantus. 4) HTN - Well controlled. She takes Cozaar, Toprol XL, Amlodipine. 5) Anemia post-procedural/dilutional 6) Hypoxemia - Suspect that the atelectasis superimposed on COPD has been the reason she has continued to require supplemental oxygen. 7) E. Coli UTI - IV cipro in hospital then discharge on Cipro 500mg po BID for 7 more days. 8) DVT prophylaxis - TEDs, SCDs, and Lovenox. Awaiting insurance approval for discharge plan. I am comfortable with her being transferred to rehab facility when bed is available. Thank you for allowing me to assist you in caring for this pleasant lady. Discharge planning: rehab hospital
[2016-06-25 21:00] VITALS: BP 131/64; PULSE 80
[2016-06-25 22:50] VITALS: BP 113/64; PULSE 64; TEMP 36.8; O2SAT 98
[2016-06-26] MEDS: CIPROFLOXACIN / D5W 400 MG in PREMIXED IN D5W 200 ML IV SCH ×2 (00:05→10:48)
[2016-06-26] MEDS: ACETAMINOPHEN 325 MG TAB PO PRN ×3 (06:21→22:00)
[2016-06-26] MEDS ORDERED: CIPR-255 PO (07:50)
[2016-06-26] MEDS: INSULIN ASPART 100 UNITS/ML 3 ML PEN SC SCH ×4 (08:00→21:00)
[2016-06-26 08:06] VITALS: BP 141/75; PULSE 68; TEMP 36.8; O2SAT 97
[2016-06-26] MEDS: TIOTROPIUM BROMIDE 5 PUFF/90 MCG INH INH SCH (08:17)
[2016-06-26] MEDS: ENOXAPARIN 30 MG/0.3 ML SYR SQ SCH ×2 (08:17→21:20)
[2016-06-26] MEDS: IPRATROPIUM BROMIDE/ALBUTEROL respimat INH INH SCH ×4 (08:17→22:01)
[2016-06-26] MEDS: METOPROLOL TARTRATE 100 MG TAB PO SCH ×2 (08:19→21:20)
[2016-06-26] MEDS: LOSARTAN POTASSIUM 50 MG TAB PO SCH ×2 (08:19→21:20)
[2016-06-26] MEDS: CALCIUM 600MG + VIT D 400 IU TAB PO SCH (08:20)
[2016-06-26] MEDS: PANTOprazole SOD 40 MG TAB PO SCH (08:20)
[2016-06-26] MEDS: MAGNESIUM OXIDE 400 MG TAB PO SCH (08:20)
[2016-06-26] MEDS: AMLODIPINE BESYLATE 5 MG TAB PO SCH (08:20)
[2016-06-26] MEDS: MULTIVITAMIN TAB PO SCH (08:20)
[2016-06-26] MEDS: CIPROFLOXACIN HCL 0.3% OP SOLN 2.5 ML BTL OP SCH ×2 (08:21→21:20)
[2016-06-26] MEDS: ATORVASTATIN 10 MG TAB PO SCH (08:21)
--- NOTE | 2016-06-26 08:21 | Progress Note ---
Orthopedic SOAP Note Subjective Date of Service: Jun 26, 2016. Post OP Day: 6 Reports: feeling well, pain controlled w PO medications (only using Tylenol 650 BID for pain control), Denies: SOB, calf pain, chest pain, complaints, light headedness, nausea / vomiting, using [employer] DEVELOPMENT MANAGER Problem List Medical Problems: (1) Displaced fracture of right femur Status: Acute (2) Fall Status: Acute (3) Left lower lobe pneumonia Status: Acute (4) Vomiting Status: Acute Objective calves soft nontender, N/V intact, capillary refill less than 2 sec., dressing C /D/I, incision C/D/I, A&O x3, toes mobile Date Time Temp Pulse Resp B/P Pulse Ox O2 Delivery O2 Flow Rate FiO2 06/26/16 08:06 36.8 68 16 141/75 97 Room Air 06/26/16 00:00 Nasal Cannula 3.0 06/25/16 22:50 36.8 64 16 113/64 98 Nasal Cannula 3.0 06/25/16 21:00 80 131/64 06/25/16 16:02 36.8 66 17 114/65 96 Nasal Cannula 3.0 06/25/16 15:30 Nasal Cannula 3.0 Assessment POD #6 s/p ORIF R distal femur periprosthetic fracture. Acute anemia blood loss, stable. UTI- E. Coli. Plan Continue nonweightbearing. Right thigh pain related to recent ORIF, expected. Resume diet, renal/vegetarian. May be out of bed to chair. Start PT/OT. Elevate, ice right lower extremity, May allow the brace to bend to maximum flexion while sitting in a chair and locked at 30 when ambulating.May remove the brace while in bed. Continue pain control. Jackson discontinued POD #1. Confirming UTI with Ua -E. coli defer to per medicine team, Cipro 500 BID x 7 days ordered Hgb stable 8.8 DVT prophylaxis: Teds, foot pumps, start Lovenox 30 mg twice a day today and continue for 3 weeks, then switch to aspirin 325 twice a day for another 3 weeks. Changed dressing this AM. Appreciate medicine input. Discharge planning, [facility], awaiting insurance approval. Follow up with Stephan Lopez PA-C at [facility] on 07/07/16 at 10: 15am for staple removal. I, Dr. Todd, saw and examined the patient and discussed the management with my PA. I reviewed my PAs note and agree with the documented findings and the plan of care I developed.
[2016-06-26] MEDS: INSULIN GLARGINE SOLOSTAR 100 UNITS/ML 3 ML PEN SC SCH (09:28)
--- NOTE | 2016-06-26 11:05 | Progress Note ---
Subjective Date of Service: Jun 26, 2016. Subjective Pt evaluation today including: conversation w/ patient, conversation w/ family , physical exam, chart review, lab review, review of inpatient medication list Pain is adequately controlled. Family member is ID and reports patient does get recurrent UTIs, different microorganisms. Has had work-up including US for anatomical evaluation which was unrevealing. SHe otherwise has no abd pain/constipation, no chest pain or SOB. No fevers Problem List Medical Problems: (1) Displaced fracture of right femur Status: Acute (2) Fall Status: Acute (3) Left lower lobe pneumonia Status: Acute (4) Vomiting Status: Acute Review of Systems All Other Systems: Reviewed and Negative Medications Acetaminophen (Tylenol Tab) 650 mg Q6H PRN PO Last administered on 06/26/16 06:21; Admin Dose 650 MG; Start 06/20/16 at 19:30; Stop 07/20/16 at 19:29 Albuterol/ Ipratropium (Combivent Respimat Inh) 1 puffs QID INH Last administered on 06/26/16 08:17; Admin Dose 1 PUFFS; Start 06/23/16 at 17:00; Stop 07/23/16 at 16:59 Albuterol/ Ipratropium (Duoneb) 3 ml Q2H PRN INH; Start 06/23/16 at 12:00; Stop 07/23/16 at 11:59 Amlodipine Besylate (Norvasc Tab) 5 mg DAILY PO Last administered on 06/26/16 08:20; Admin Dose 5 MG; Start 06/21/16 at 09:00; Stop 07/21/16 at 08:59 Atorvastatin Calcium (Lipitor Tab) 5 mg DAILY PO Last administered on 06/26/16 08:21; Admin Dose 5 MG; Start 06/21/16 at 09:00; Stop 07/21/16 at 08:59 Bisacodyl (Dulcolax Supp) 10 mg ONE PRN OK; Start 06/21/16 at 20:45 Calcium/Vitamin D (Caltrate Plus Tab) 1 tab DAILY PO Last administered on 08:20; Admin Dose 1 TAB; Start 06/21/16 at 09:00; Stop 07/21/16 at 08:59 Ciprofloxacin HCl (Ciprofloxacin 0.3% Op Soln) 1 drops Q12 OP Last administered on 06/26/16 08:21; Admin Dose 1 DROPS; Start 06/22/16 at 21:00; Stop 07/02/16 at 20:59 Ciprofloxacin/ Dextrose/Prmx (Cipro / D5w/ Premixed D5W) 200 ml @ 100 mls/hr Q12H IV Last administered on 06/26/16 00:05; Admin Dose 100 MLS/HR; Start 06/25 at 11:00; Stop 06/30/16 at 10:44 Dextrose (Dextrose 50% 50ML Syringe) 25-50ML OF 50% DW IV FOR... UD PRN IV; Start 06/20/16 at 21:45; Stop 07/20/16 at 21:44 Diphenhydramine HCl (Benadryl Inj) 25 mg Q8H PRN IV; Start 06/20/16 at 19:30; Stop 07/20/16 at 19:29 Docusate Sodium (coLACE CAP) 100 mg BID PRN PO Last administered on 06/24/16 08:44; Admin Dose 100 MG; Start 06/21/16 at 20:45; Stop 07/21/16 at 20:44 Enoxaparin Sodium (Lovenox Inj) 30 mg Q12H SQ Last administered on 06/26/16 08: 17; Admin Dose 30 MG; Start 06/21/16 at 08:00; Stop 07/12/16 at 20:00 Glucagon (Glucagon Inj) 1 mg UD PRN SQ; Start 06/20/16 at 21:45; Stop 07/20/16 at 21:44 Glucose (Glucose 40% Gel) 15-30 GRAMS 15 GRAMS... UD PRN PO; Start 06/20/16 at 21:45; Stop 07/20/16 at 21:44 Glucose (Glucose Chew Tab) 4-8 Tablets 4 Tabl... UD PRN PO; Start 06/20/16 at 21:45; Stop 07/20/16 at 21:44 Insulin Aspart (novoLOG ASPART) SLIDING SCALE G... ACHS SC Last administered on 06/25/16 18:41; Admin Dose 2 UNITS; Start 06/21/16 at 08:00; Stop 07/21/16 at 07:59 Insulin Glargine (Lantus Solostar Pen) 37 unit QAM SC Last administered on 09:28; Admin Dose 37 UNIT; Start 06/21/16 at 09:00; Stop 07/21/16 at 08:59 Ioversol 111 ml 111 ml UD PRN IV; Start 06/24/16 at 20:15; Stop 06/28/16 at 20: 14 Losartan Potassium (coZAAR TAB) 50 mg BID PO Last administered on 06/26/16 08: 19; Admin Dose 50 MG; Start 06/20/16 at 21:00; Stop 07/20/16 at 20:59 Magnesium Hydroxide (Milk Of Magnesia Susp) 30 ml Q6H PRN PO Last administered on 06/22/16 14:12; Admin Dose 30 ML; Start 06/21/16 at 20:45; Stop 07/21/16 at 20:44 Magnesium Oxide (Mag-Ox Tab) 400 mg QAM PO Last administered on 06/26/16 08:20 ; Admin Dose 400 MG; Start 06/21/16 at 09:00; Stop 07/21/16 at 08:59 Metformin HCl (Glucophage Tab) 1,000 mg BIDM PO Last administered on 06/24/16 19:43; Admin Dose 1,000 MG; Start 06/20/16 at 21:00; Stop 07/20/16 at 20:59; Status Future hold Metoclopramide HCl (Reglan Inj) 10 mg Q6H PRN IV; Start 06/20/16 at 19:30; Stop 07/20/16 at 19:29 Metoprolol Tartrate (Lopressor Tab) 100 mg BID PO Last administered on 08:19; Admin Dose 100 MG; Start 06/20/16 at 21:00; Stop 07/20/16 at 20:59 Miscellaneous (Iv Fluids Completed) 1 ea PRN PRN N/A; Start 06/20/16 at 16:30; Stop 06/20/17 at 16:29 Morphine Sulfate (MoRPHine SULFATE INJ) 1 mg Q3HWA PRN IV Last administered on 06/21/16 03:40; Admin Dose 1 MG; Start 06/20/16 at 20:00; Stop 07/04/16 at 19:59 Multivitamins (Multivitamin Tab) 1 tab DAILY PO Last administered on 06/26/16 08:20; Admin Dose 1 TAB; Start 06/21/16 at 09:00; Stop 07/21/16 at 08:59 Nitroglycerin (Nitrostat Tab) 0.4 mg UD PRN UT; Start 06/20/16 at 19:45; Stop 07/20/16 at 19:44 Ondansetron HCl (Zofran Inj) 4 mg Q6H PRN IV; Start 06/20/16 at 19:30; Stop at 19:29 Oxycodone HCl (Roxicodone Immediate Rel Tab) 1-2 TABS FOR PAIN 1 TABLET ... Q4H PRN PO Last administered on 06/21/16 06:35; Admin Dose 10 MG; Start 06/20/16 at 19:30; Stop 07/04/16 at 19:29 Pantoprazole Sodium (Protonix Tab) 40 mg QAM PO Last administered on 06/26/16 08:20; Admin Dose 40 MG; Start 06/21/16 at 09:00; Stop 07/21/16 at 08:59 Polyethylene (Miralax Powder Packet) 17 gm DAILY PRN PO; Start 06/21/16 at 09: 45; Stop 07/21/16 at 09:44 Polyethylene (Miralax Powder Packet) 17 gm DAILY PRN PO; Start 06/22/16 at 12: 45; Stop 07/22/16 at 12:44 Tiotropium [place] (Spiriva Handihaler Inhaler) 1 puff DAILY INH Last administered on 06/26/16 08:17; Admin Dose 1 PUFF; Start 06/21/16 at 09:00; Stop 07/21/16 at 08:59 Objective Vital Signs Date Time Temp Pulse Resp B/P Pulse Ox O2 Delivery O2 Flow Rate FiO2 06/26/16 08:25 Nasal Cannula 3.0 06/26/16 08:06 36.8 68 16 141/75 97 Nasal Cannula 2.0 06/26/16 00:00 Nasal Cannula 3.0 06/25/16 22:50 36.8 64 16 113/64 98 Nasal Cannula 3.0 06/25/16 21:00 80 131/64 06/25/16 16:02 36.8 66 17 114/65 96 Nasal Cannula 3.0 06/25/16 15:30 Nasal Cannula 3.0 Physical Exam Comments: nad, aox3 eomi, perrl, anicteric sclerae s1 s2 rrr, no m/r/g decreased breath sound with minimal basilar rales abd obese, soft, nt/nd +BS, no CVA Tend no LE edema RLE with brace CN 2-12 grossly intact without facial drooping Laboratory Results Last 24 Hours Test 06/25/16 12:02 06/25/16 17:01 06/26/16 00:46 06/26/16 08:27 Bedside Glucose 211 mg/dl 160 mg/dl 100 mg/dl 90 mg/dl Assessment and Plan 1. R femur fx - POD #6 ORIF - pain regimen - mgt per primary team 2. UTI - ESBL E coli, will switch to ertapenem - will need PICC prior to placement - recurrent without known anatomical abnormalities per family report 3. HTN - adequately controlled on amlodipine, metoprolol, losartan 4. T2DM - glucose readings acceptable - cont metformin along with insulin regimen - per family, well-controlled outpatient 5. COPD - encouraged incentive lorenzo - cont spiriva - nebs prn dvt ppx Continued [facility] stay due to: multiple IV medications needed Discharge planning: rehab hospital
[2016-06-26 15:12] VITALS: BP 155/70; PULSE 61; TEMP 36.9; O2SAT 93
[2016-06-26] MEDS ORDERED: ERTAPENEM IV 1 GM in SODIUM CHLOR 0.9% AD-VAN 50ML 50 ML IV SCH (17:00)
[2016-06-26] MEDS: METFORMIN HCL 500 MG TAB PO SCH (18:17)
[2016-06-26 23:07] VITALS: BP 143/74; PULSE 77; TEMP 36.8; O2SAT 97
[2016-06-27 00:35] VITALS: O2SAT 97
[2016-06-27 07:16] VITALS: BP 143/79; PULSE 73; TEMP 36.8; O2SAT 99
[2016-06-27] MEDS: INSULIN ASPART 100 UNITS/ML 3 ML PEN SC SCH ×2 (08:00→13:08)
[2016-06-27] MEDS: IPRATROPIUM BROMIDE/ALBUTEROL respimat INH INH SCH ×2 (08:19→13:08)
[2016-06-27] MEDS: METOPROLOL TARTRATE 100 MG TAB PO SCH (08:19)
[2016-06-27] MEDS: CIPROFLOXACIN HCL 0.3% OP SOLN 2.5 ML BTL OP SCH (08:19)
[2016-06-27] MEDS: MULTIVITAMIN TAB PO SCH (08:19)
[2016-06-27] MEDS: CALCIUM 600MG + VIT D 400 IU TAB PO SCH (08:20)
[2016-06-27] MEDS: ATORVASTATIN 10 MG TAB PO SCH (08:20)
[2016-06-27] MEDS: AMLODIPINE BESYLATE 5 MG TAB PO SCH (08:20)
[2016-06-27] MEDS: MAGNESIUM OXIDE 400 MG TAB PO SCH (08:20)
[2016-06-27] MEDS: METFORMIN HCL 500 MG TAB PO SCH (08:20)
[2016-06-27] MEDS: LOSARTAN POTASSIUM 50 MG TAB PO SCH (08:21)
[2016-06-27] MEDS: ENOXAPARIN 30 MG/0.3 ML SYR SQ SCH (08:21)
[2016-06-27] MEDS: TIOTROPIUM BROMIDE 5 PUFF/90 MCG INH INH SCH (08:21)
[2016-06-27] MEDS: PANTOprazole SOD 40 MG TAB PO SCH (08:22)
[2016-06-27 08:26] LABS: BASO % 0.4 %; BASO ABS # 0.03 K/uL (0-0.2); COMPLETE YES; EOS % 4.1 %; HEMATOCRIT 28.8 % (37-47); IG% 1.3 %; LYMPH % 22.6 %; LYMPH ABS # 1.71 K/uL (1.2-3.4); MEAN CORPUSCULAR HEMOGLOBIN 28.1 pg (25-34); MEAN CORPUSCULAR HGB CONC 32.3 g/dl (32-36); MEAN PLATELET VOLUME 8.9 fL (7.4-10.4); MONO % 10.2 %; NEUT % 61.4 %; PLATELET COUNT 403 K/uL (130-400); RED BLOOD COUNT 3.31 M/uL (4.2-5.4); WHITE BLOOD COUNT 7.58 K/uL (4.8-10.8)
[2016-06-27] MEDS: ACETAMINOPHEN 325 MG TAB PO PRN ×2 (08:27→14:04)
[2016-06-27 08:48] LABS: BUN/CREATININE RATIO 23.5 (10-20); CALCIUM 8.3 mg/dl (8.5-10.1); CREATININE 0.34 mg/dl (0.60-1.20); MAGNESIUM 1.9 mg/dl (1.8-2.4); POTASSIUM 4.2 mmol/L (3.5-5.1)
[2016-06-27] MEDS: INSULIN GLARGINE SOLOSTAR 100 UNITS/ML 3 ML PEN SC SCH (09:20)
--- NOTE | 2016-06-27 11:21 | Medical Consult ---
Consultation Date of Consultation: Jun 27, 2016. Attending Physician: Kelvin Todd MD Reason for Consultation: ESBL E. Coli UTI History of Present Illness Patient is an 85-year-old female who initially presented to the hospital with complaints of a fall prior to admission. She started having right lower extremity pain shortly after her fall. She is visiting from [place]. During her hospital admission, the patient is now s/p ORIF the right hip. She did also have the urine culture completed which is growing ESBL producing E coli resistant to ampicillin and cephalosporins. The patient was initially on Keflex , will was then transition to Cipro. When she was found to have this E coli, she was then transition to IV ertapenem. Her blood cell count today is 7.58. Her creatinine is 0.34. A CTA of the chest/thorax showed no acute pulmonary embolism present. She states that she is feeling well, but she does continue to have some right hip pain. She is currently having no urinary symptoms. 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 She was worked up for anatomic abnormality according to her son, and no abnormalities were found. She does not have history of kidney stones. Past Medical/Surgical History Medical Problems: (1) Displaced fracture of right femur Status: Acute (2) Fall Status: Acute (3) Left lower lobe pneumonia Status: Acute (4) Vomiting Status: Acute Medical Problems: (1) DM (diabetes mellitus) (2) HTN (hypertension) (3) Stacey-prosthetic femoral shaft fracture Surgical Problems: (1) B/L hip arthroplasty Family History Patient reports no known family medical history. Noncontributory Social History Smoking Status: Never Smoker Occupation Status: unemployed Allergies Coded Allergies: No Known Allergies (Verified , 06/20/16) Home Medications Reported Home Medications Medications Dose Route/Sig Max Daily Dose Days Date Category Dose Instructions Cipro (Ciprofloxacin Hcl) 500 Mg Tab 1 Tab PO BID 7 06/26/16 Rx Acetaminophen 500 Mg Tab 1 Tab PO Q6 15 06/23/16 Rx Lovenox (Enoxaparin Sodium) 30 Mg/0.3 Ml Inj 30 Mg SQ Q12 21 06/23/16 Rx after 3 weeks of Lovenox please use ASA 325mg BID for additional 3 weeks Lantus (Insulin Glargine) 100 Unit/Ml Inj 37 Units SC QAM 2/21/17 Reported Mag-Ox (Magnesium Oxide) Unknown Strength Tab 400 Mg PO DAILY 04/27/16 Reported Caltrate 600 Plus (Calcium Carbonate-Vitamin D W/) 1 Tab Tab 1 Tab PO DAILY 04/27/16 Reported Coq-10 (Coenzyme Q10 (Ubidecarenone)) 100 Mg Cap 200 Mg PO DAILY 04/27/16 Reported Spiriva Handihaler (Tiotropium [place]) 30 Puff/540 Mcg Aerp 1 Cap INH DAILY 04/27/16 Reported Lipitor (Atorvastatin Calcium) 10 Mg Tab 5 Mg PO DAILY 04/27/16 Reported Norvasc (Amlodipine Besylate) 5 Mg Tab 5 Mg PO DAILY 04/27/16 Reported Lopressor (Metoprolol Tartrate) 100 Mg Tab 100 Mg PO BID 06/14/13 Reported Cozaar (Losartan Potassium) 50 Mg Tab 50 Mg PO BID 06/14/13 Reported Nitrostat (Nitroglycerin) 0.4 Mg Sub 0.4 Mg UT UD PRN 07/14/12 Reported Multivitamin (Multiple Vitamin) 1 Tab Tab 1 Tab PO DAILY 07/14/12 Reported Fish Oil (Redford-3 Fatty Acids) 1 Cap Cap 1 Cap PO DAILY 07/14/12 Reported Glucophage (Metformin Hcl) 1,000 Mg Tab 1,000 Mg PO BID 07/14/12 Reported Current Inpatient Medications Current Inpatient Medications Medications (Trade) Dose Ordered Sig/Alexis Route Start Time Stop Time Status Last Admin Dose Admin Miscellaneous (Iv Fluids Completed) 1 ea PRN PRN N/A 06/20/16 16:30 06/20/17 16:29 Oxycodone HCl (Roxicodone Immediate Rel Tab) 1-2 TABS FOR PAIN 1 TABLET ... Q4H PRN PO 06/20/16 19:30 07/04/16 19:29 06/21/16 06:35 10 MG Acetaminophen (Tylenol Tab) 650 mg Q6H PRN PO 06/20/16 19:30 07/20/16 19:29 06/27/16 08:27 650 MG Diphenhydramine HCl (Benadryl Inj) 25 mg Q8H PRN IV 06/20/16 19:30 07/20/16 19:29 Ondansetron HCl (Zofran Inj) 4 mg Q6H PRN IV 06/20/16 19:30 07/20/16 19:29 Metoclopramide HCl (Reglan Inj) 10 mg Q6H PRN IV 06/20/16 19:30 07/20/16 19:29 Pantoprazole Sodium (Protonix Tab) 40 mg QAM PO 06/21/16 09:00 07/21/16 08:59 06/27/16 08:22 40 MG Amlodipine Besylate (Norvasc Tab) 5 mg DAILY PO 06/21/16 09:00 07/21/16 08:59 06/27/16 08:20 5 MG Atorvastatin Calcium (Lipitor Tab) 5 mg DAILY PO 06/21/16 09:00 07/21/16 08:59 06/27/16 08:20 5 MG Calcium/Vitamin D (Caltrate Plus Tab) 1 tab DAILY PO 06/21/16 09:00 07/21/16 08:59 06/27/16 08:20 1 TAB Insulin Glargine (Lantus Solostar Pen) 37 unit QAM SC 06/21/16 09:00 07/21/16 08:59 06/27/16 09:20 37 UNIT Losartan Potassium (coZAAR TAB) 50 mg BID PO 06/20/16 21:00 07/20/16 20:59 06/27/16 08:21 50 MG Metformin HCl (Glucophage Tab) 1,000 mg BIDM PO 06/20/16 21:00 07/20/16 20:59 Future hold 06/27/16 08:20 1,000 MG Metoprolol Tartrate (Lopressor Tab) 100 mg BID PO 06/20/16 21:00 07/20/16 20:59 06/27/16 08:19 100 MG Multivitamins (Multivitamin Tab) 1 tab DAILY PO 06/21/16 09:00 07/21/16 08:59 06/27/16 08:19 1 TAB Nitroglycerin (Nitrostat Tab) 0.4 mg UD PRN UT 06/20/16 19:45 07/20/16 19:44 Tiotropium Valrico (Spiriva Handihaler Inhaler) 1 puff DAILY INH 06/21/16 09:00 07/21/16 08:59 06/27/16 08:21 1 PUFF Magnesium Oxide (Mag-Ox Tab) 400 mg QAM PO 06/21/16 09:00 07/21/16 08:59 06/27/16 08:20 400 MG Enoxaparin Sodium (Lovenox Inj) 30 mg Q12H SQ 06/21/16 08:00 07/12/16 20:00 06/27/16 08:21 30 MG Morphine Sulfate (MoRPHine SULFATE INJ) 1 mg Q3HWA PRN IV 06/20/16 20:00 07/04/16 19:59 06/21/16 03:40 1 MG Glucose (Glucose 40% Gel) 15-30 GRAMS 15 GRAMS... UD PRN PO 06/20/16 21:45 07/20/16 21:44 Glucose (Glucose Chew Tab) 4-8 Tablets 4 Tabl... UD PRN PO 06/20/16 21:45 07/20/16 21:44 Dextrose (Dextrose 50% 50ML Syringe) 25-50ML OF 50% DW IV FOR... UD PRN IV 06/20/16 21:45 07/20/16 21:44 Glucagon (Glucagon Inj) 1 mg UD PRN SQ 06/20/16 21:45 07/20/16 21:44 Insulin Aspart (novoLOG ASPART) SLIDING SCALE G... ACHS SC 06/21/16 08:00 07/21/16 07:59 06/26/16 12:50 7 UNITS Polyethylene (Miralax Powder Packet) 17 gm DAILY PRN PO 06/21/16 09:45 07/21/16 09:44 Magnesium Hydroxide (Milk Of Magnesia Susp) 30 ml Q6H PRN PO 06/21/16 20:45 07/21/16 20:44 06/22/16 14:12 30 ML Docusate Sodium (coLACE CAP) 100 mg BID PRN PO 06/21/16 20:45 07/21/16 20:44 06/24/16 08:44 100 MG Bisacodyl (Dulcolax Supp) 10 mg ONE PRN AK 06/21/16 20:45 Ciprofloxacin HCl (Ciprofloxacin 0.3% Op Soln) 1 drops Q12 OP 06/22/16 21:00 07/02/16 20:59 06/27/16 08:19 1 DROPS Polyethylene (Miralax Powder Packet) 17 gm DAILY PRN PO 06/22/16 12:45 07/22/16 12:44 Albuterol/ Ipratropium (Combivent Respimat Inh) 1 puffs QID INH 06/23/16 17:00 07/23/16 16:59 06/27/16 08:19 1 PUFFS Albuterol/ Ipratropium (Duoneb) 3 ml Q2H PRN INH 06/23/16 12:00 07/23/16 11:59 Ioversol 111 ml 111 ml UD PRN IV 06/24/16 20:15 06/28/16 20:14 Ertapenem/Sodium Chloride (Invanz Iv/Nss Ad-Van 50ml) 50 ml @ 120 mls/hr Q24H IV 06/26/16 17:00 07/06/16 16:59 06/26/16 16:59 120 MLS/HR Review of Systems Constitutional: + fatigue, No chills, No fever, No sweats Eyes: No worsening of vision ENT: No hearing loss Respiratory: No cough Cardiovascular: No chest pain Abdomen: No diarrhea, No pain Musculoskeletal: + joint pain (right hip- s/p ORIF) Genitourinary - Female: No dysuria Integumentary: No itch, No rash Physical Exam Date Time Temp Pulse Resp B/P Pulse Ox O2 Delivery O2 Flow Rate FiO2 06/27/16 07:42 Nasal Cannula 3.0 06/27/16 07:16 36.8 73 18 143/79 99 Nasal Cannula 3.0 06/27/16 00:35 97 Nasal Cannula 3.0 06/26/16 23:07 36.8 77 16 143/74 97 Nasal Cannula 3.0 06/26/16 20:00 Nasal Cannula 3.0 06/26/16 15:12 36.9 61 17 155/70 93 Nasal Cannula 3.0 General Appearance: WD/WN, no apparent distress Head: normocephalic, atraumatic Eyes: normal inspection, sclerae normal ENT: hearing grossly normal Neck: supple, trachea midline Respiratory/Chest: chest non-tender, lungs clear, normal breath sounds, no respiratory distress, no accessory muscle use Cardiovascular: regular rate, rhythm Abdomen/GI: normal bowel sounds, non tender, soft Back: normal inspection Extremities/Musculoskelatal: + pertinent finding (right hip with healing surgical incision) Neurologic/Psych: alert, normal mood/affect Skin: normal color, warm/dry, no rash Laboratory Results CT ANGIOGRAM OF THE CHEST CLINICAL HISTORY: Atypical chest pain COMPARISON STUDY: Chest x-ray dated 06/20/2016 TECHNIQUE: Following the IV administration of 97 mL of Optiray-320, CT angiogram of the thorax was performed from the thoracic inlet to the lung bases utilizing the pulmonary embolus protocol. Images are reviewed in the axial, sagittal, and coronal planes. IV contrast was administered without complication. MIP imaging was performed. CT DOSE: 381.20 mGy.cm FINDINGS: No pathologically enlarged axillary mediastinal or hilar lymph nodes were visualized. There was no evidence of thoracic aortic dilatation. There were no pulmonary artery filling defects to indicate acute pulmonary embolism. The heart is mildly enlarged. There are coronary artery calcifications present. There are trace bilateral pleural effusions. There are bibasal atelectatic changes. There is mild lower lobe bronchial wall thickening. IMPRESSION: 1. No CT evidence of acute pulmonary embolism 2. Trace pleural effusions 3. Mild lower lobe bronchial wall thickening 4. Bibasal atelectasis RUN DATE: 06/26/16 [facility] LAB PAGE 1 RUN TIME: 815 Specimen Inquiry PATIENT: LEONIDAS WOODWARD LOC: [facility] U # : [id number] AGE/SX: 85/F ROOM: [facility] [place] REG : 06/20/[address]: Kelvin Todd MD : [id number] BED: 2 DIS : STATUS: ADM IN TLOC: SPEC #: [id number] JAMES: 06/24/16-UNK STATUS: COMP REQ #: [id number] RECD: 06/24/[address] [facility] [address]: Jaison Cuellar DO SOURCE: UR, CC ENTR: 06/24/[address] [facility] [address]: Kelvin Todd MD [facility]: No Doctor, Reji Barrera D.O. ORDERED: CULTURE URCLEAN COMMENTS: Has Specimen Been Obtained/Collected? Y Procedure Result Verified Site URINE CULTURE Final 06/26/16 Organism 1 ESCHERICHIA COLI COLONY COUNT >100,000 CFU/ml SENS SENSITIVITY TO FOLLOW +MIX PLUS LOW COUNTS OTHER MIXED DELORIS SENSITIVITY RESULT INDICATES AN ORGANISM WITH AN EXTENDED SPECTRUM BETA LACTAMASE.THIS IS CONSIDERED A MULTIDRUG RESISTANT ORGANISM.PHONED TO [address] [place] [address] (FIORELLA GILL) ON 06/26/16 AT 0725 BY Javier Tomlin. Results were verbalized back to DONNIE. RESULTS WERE ALSO CALLED TO [facility] INFECTION CONTROL ANSWERING MACHINE ON 06/26/16 BY DONNIE. 1. ESCHERICHIA COLI Target Route Dose RX AB Cost M.I.C. IQ ------ ----- ------ -- ------ -------- - ------ TRIMET/SULFA S <=/38 AMPICILLIN R >16 AMPICILLIN/SUL S <=8/4 CEFAZOLIN R >16 CEFOTAXIME R >32 CEFTRIAXONE R >32 CEFEPIME R >16 CEFUROXIME R >16 IMIPENEM S <=1 GENTAMICIN S <=4 TOBRAMYCIN S <=4 AMIKACIN S <=16 CIPROFLOXACIN S <=1 LEVOFLOXACIN S <=2 ERTAPENEM S <=1 NITROFURANTOIN S <=32 PIP/TAZO S <=16 S = SENSITIVE I = INTERMEDIATE R = RESISTANT Item Value Date Time Urine Culture - Final Complete 06/24/16 0000 Urine , Clean Catch Escherichia Coli Last 24 Hours Test 06/26/16 11:46 06/26/16 17:32 06/26/16 20:58 06/27/16 07:50 Bedside Glucose 199 mg/dl 90 mg/dl 128 mg/dl White Blood Count 7.58 K/uL Red Blood Count 3.31 M/uL Hemoglobin 9.3 g/dL Hematocrit 28.8 % Mean Corpuscular Volume 87.0 fL Mean Corpuscular Hemoglobin 28.1 pg Mean Corpuscular Hemoglobin Concent 32.3 g/dl Platelet Count 403 K/uL Mean Platelet Volume 8.9 fL Neutrophils (%) (Auto) 61.4 % Lymphocytes (%) (Auto) 22.6 % Monocytes (%) (Auto) 10.2 % Eosinophils (%) (Auto) 4.1 % Basophils (%) (Auto) 0.4 % Neutrophils # (Auto) 4.66 K/uL Lymphocytes # (Auto) 1.71 K/uL Monocytes # (Auto) 0.77 K/uL Eosinophils # (Auto) 0.31 K/uL Basophils # (Auto) 0.03 K/uL RDW Standard Deviation 44.3 fL RDW Coefficient of Variation 13.9 % Immature Granulocyte % (Auto) 1.3 % Immature Granulocyte # (Auto) 0.10 K/uL Nucleated RBC Absolute Count (auto) 0.02 K/uL Nucleated Red Blood Cells % 0.3 % Sodium Level 133 mmol/L Potassium Level 4.2 mmol/L Chloride Level 97 mmol/L Carbon Dioxide Level 30 mmol/L Anion Gap 6.0 mmol/L Blood Urea Nitrogen 8 mg/dl Creatinine 0.34 mg/dl Est Creatinine Clear Calc Drug Dose 114.5 ml/min Estimated GFR () 116.9 Estimated GFR (Non- 100.9 BUN/Creatinine Ratio 23.5 Random Glucose 95 mg/dl Calcium Level 8.3 mg/dl Magnesium Level 1.9 mg/dl Test 06/27/16 08:32 Bedside Glucose 103 mg/dl Assessment & Plan Patient with ESBL E. Coli UTI in the setting of Right Hip fracture now s/p ORIF. She is currently on IV Ertapenem. With the sensitivity pattern of her E. Coli, patient OK to continue on PO Cipro. Will D/C Ertapenem. Recommend completing 10 days of therapy. She can follow up with ID as outpatient if she has any diarrhea or recurrences. She is OK for D/C from ID perspective. Thanks Plan: 1. D/C Ertapenem 2. Restart PO Cipro to complete 10 days PROVIDER ADDENDUM: Patient examined and reviewed with Ms. Cartagena. Agree with above assessment.
[2016-06-27 11:59] VITALS: BP 130/80; PULSE 62; TEMP 36.8; O2SAT 97
--- NOTE | 2016-06-27 12:52 | Progress Note ---
Orthopedic SOAP Note Subjective Date of Service: Jun 27, 2016. Post OP Day: 7 Reports: feeling well, pain controlled w PO medications, Denies: SOB, calf pain , chest pain, complaints, light headedness, nausea / vomiting, using RADIOLOGY TEACHER Additional Notes: has made significant improvements symptomatically reports minimal discomfort and only requires Tylenol BID patient's family with her today. spoke in depth regarding discharge and future care Problem List Medical Problems: (1) Displaced fracture of right femur Status: Acute (2) Fall Status: Acute (3) Left lower lobe pneumonia Status: Acute (4) Vomiting Status: Acute Objective calves soft nontender, N/V intact, capillary refill less than 2 sec., dressing C /D/I, incision C/D/I (incision looks great. no erythema, swelling, drainage, or echymosis ), A&O x3, toes mobile tolerated dressing change very well. was able to passively flex the hip in order to change dressing. no pain while doing so. Date Time Temp Pulse Resp B/P Pulse Ox O2 Delivery O2 Flow Rate FiO2 06/27/16 11:59 36.8 62 18 130/80 97 Nasal Cannula 3.0 06/27/16 07:42 Nasal Cannula 3.0 06/27/16 07:16 36.8 73 18 143/79 99 Nasal Cannula 3.0 06/27/16 00:35 97 Nasal Cannula 3.0 06/26/16 23:07 36.8 77 16 143/74 97 Nasal Cannula 3.0 06/26/16 20:00 Nasal Cannula 3.0 06/26/16 15:12 36.9 61 17 155/70 93 Nasal Cannula 3.0 Laboratory Results 24 Hours: Test 06/27/16 07:50 White Blood Count 7.58 K/uL Red Blood Count 3.31 M/uL Hemoglobin 9.3 g/dL Hematocrit 28.8 % Mean Corpuscular Volume 87.0 fL Mean Corpuscular Hemoglobin 28.1 pg Mean Corpuscular Hemoglobin Concent 32.3 g/dl Platelet Count 403 K/uL Mean Platelet Volume 8.9 fL Neutrophils (%) (Auto) 61.4 % Lymphocytes (%) (Auto) 22.6 % Monocytes (%) (Auto) 10.2 % Eosinophils (%) (Auto) 4.1 % Basophils (%) (Auto) 0.4 % Neutrophils # (Auto) 4.66 K/uL Lymphocytes # (Auto) 1.71 K/uL Monocytes # (Auto) 0.77 K/uL Eosinophils # (Auto) 0.31 K/uL Basophils # (Auto) 0.03 K/uL Assessment POD #7 s/p ORIF R distal femur periprosthetic fracture. Acute anemia blood loss, stable. UTI- E. Coli. Plan Continue nonweightbearing. Resume diet, renal/vegetarian. May be out of bed to chair. PT/OT. Elevate, ice right lower extremity, May allow the brace to bend to maximum flexion while sitting in a chair and locked at 30 when ambulating.May remove the brace while in bed. Continue pain control. Jackson discontinued POD #1. Confirming UTI with Ua -E. coli defer to per medicine team, Cipro 500 BID x 7 days ordered Hgb stable 8.8 DVT prophylaxis: Teds, foot pumps, start Lovenox 30 mg twice a day today and continue for 3 weeks, then switch to aspirin 325 twice a day for another 3 weeks. Changed dressing this AM. Appreciate medicine input. Discharge today, [facility], Follow up with Stephan Lopez PA-C at [facility] on 07/07/16 at 10: 15am for staple removal.
--- NOTE | 2016-06-27 12:55 | Progress Note ---
Subjective Date of Service: Jun 27, 2016. Subjective Pt evaluation today including: conversation w/ patient, conversation w/ family , physical exam, review of inpatient medication list Pain well-controlled. No new complaints. No chest pain, no sob. No abd pain. Problem List Medical Problems: (1) Displaced fracture of right femur Status: Acute (2) Fall Status: Acute (3) Left lower lobe pneumonia Status: Acute (4) Vomiting Status: Acute Medications INpatient meds reviewed Objective Vital Signs Date Time Temp Pulse Resp B/P Pulse Ox O2 Delivery O2 Flow Rate FiO2 06/27/16 11:59 36.8 62 18 130/80 97 Nasal Cannula 3.0 06/27/16 07:42 Nasal Cannula 3.0 06/27/16 07:16 36.8 73 18 143/79 99 Nasal Cannula 3.0 06/27/16 00:35 97 Nasal Cannula 3.0 06/26/16 23:07 36.8 77 16 143/74 97 Nasal Cannula 3.0 06/26/16 20:00 Nasal Cannula 3.0 06/26/16 15:12 36.9 61 17 155/70 93 Nasal Cannula 3.0 Physical Exam Comments: nad, aox3 eomi, perrl s1 s2 rrr ctab no w/r/r abd soft ,nt/nd +BS no LE edema, RLE bracei nplace Laboratory Results Last 24 Hours Test 06/26/16 17:32 06/26/16 20:58 06/27/16 07:50 06/27/16 08:32 Bedside Glucose 90 mg/dl 128 mg/dl 103 mg/dl White Blood Count 7.58 K/uL Red Blood Count 3.31 M/uL Hemoglobin 9.3 g/dL Hematocrit 28.8 % Mean Corpuscular Volume 87.0 fL Mean Corpuscular Hemoglobin 28.1 pg Mean Corpuscular Hemoglobin Concent 32.3 g/dl Platelet Count 403 K/uL Mean Platelet Volume 8.9 fL Neutrophils (%) (Auto) 61.4 % Lymphocytes (%) (Auto) 22.6 % Monocytes (%) (Auto) 10.2 % Eosinophils (%) (Auto) 4.1 % Basophils (%) (Auto) 0.4 % Neutrophils # (Auto) 4.66 K/uL Lymphocytes # (Auto) 1.71 K/uL Monocytes # (Auto) 0.77 K/uL Eosinophils # (Auto) 0.31 K/uL Basophils # (Auto) 0.03 K/uL RDW Standard Deviation 44.3 fL RDW Coefficient of Variation 13.9 % Immature Granulocyte % (Auto) 1.3 % Immature Granulocyte # (Auto) 0.10 K/uL Nucleated RBC Absolute Count (auto) 0.02 K/uL Nucleated Red Blood Cells % 0.3 % Sodium Level 133 mmol/L Potassium Level 4.2 mmol/L Chloride Level 97 mmol/L Carbon Dioxide Level 30 mmol/L Anion Gap 6.0 mmol/L Blood Urea Nitrogen 8 mg/dl Creatinine 0.34 mg/dl Est Creatinine Clear Calc Drug Dose 114.5 ml/min Estimated GFR () 116.9 Estimated GFR (Non- 100.9 BUN/Creatinine Ratio 23.5 Random Glucose 95 mg/dl Calcium Level 8.3 mg/dl Magnesium Level 1.9 mg/dl Test 06/27/16 12:24 Bedside Glucose 112 mg/dl Assessment and Plan 1. R femur fx - POD #7 ORIF - pain regimen - mgt per primary team 2. UTI - ESBL E coli, will switch to ertapenem - ID consulted, switched back to cipro for total of 10 days 3. HTN - adequately controlled on amlodipine, metoprolol, losartan 4. T2DM - glucose readings acceptable - cont metformin along with insulin regimen - per family, well-controlled outpatient 5. COPD - encouraged incentive lorenzo - cont spiriva - nebs prn dvt ppx Continued [facility] stay due to: multiple IV medications needed Discharge planning: rehab hospital
[2016-06-27 13:44] VITALS: BP 130/80; PULSE 62; TEMP 36.8; O2SAT 97
--- NOTE | 2016-06-27 14:39 | DISCHARGE SUMMARY ---
ADMITTING DIAGNOSIS: Right distal periprosthetic femur fracture. DISCHARGE DIAGNOSIS: Open reduction internal fixation of right distal femur periprosthetic fracture. PERTINENT DISCHARGE MEDICATIONS: 1. Cipro 500 mg b.i.d. x7 days. 2. Acetaminophen 500 mg tab b.i.d. for pain control. 3. Lovenox 30 mg q. 12 hours x21 days for DVT prophylaxis. All other medications to be resumed. HOSPITAL COURSE: This is an 85-year-old female patient who sustained a fall and was evaluated at [facility] ER on 06/20/2016. X-rays revealed a right distal periprosthetic femur fracture. The patient was recommended to proceed with surgical intervention and was agreed upon accordingly. The patient tolerated the procedure very well. Her hospital course was slightly extended due to continued need for authorization and clearance from her insurance to be transferred. The patient ultimately was diagnosed with a UTI that is currently being treated with Cipro, very little required for pain control. The patient has done fantastic in that regard. She does require ultimately a 1-2 person assist for any type of transfers. Her H\T\H has remained stable and patient was able to be transferred on 06/27/2016 to [facility]. VITAL SIGNS: Upon discharge revealed temperature of 36.8, pulse of 62, respiratory rate of 18, blood pressure 138/80, pulse ox 97% on 3 liters nasal cannula. LABORATORY VALUES: On 06/27/2016 reveal a white count of 7.5, hemoglobin of 9.3, hematocrit 28.8, platelet count of 403. Her sodium of 133, potassium of 4.2. Her chloride is 97, carbon dioxide of 30, BUN is 8, creatinine is 0.34 and again random glucose is 112. DISCHARGE INSTRUCTIONS: 1. Transfer to [facility] today. 2. Nonweightbearing right lower extremity. She can remove the brace while in bed. While ambulating the brace can be locked at 30 degrees. When sitting in a chair the brace can be open to maximum range of motion with flexion. 3. Physical therapy and occupational therapy ordered daily. 4. Keep the incision covered. 5. DVT prophylaxis with Lovenox x3 weeks. 6. Pain control with Tylenol. 7. Continue Cipro for a total of 7 days for UTI. 8. The patient will continue her diabetic and vegetarian diet. 9. Follow up on 07/07/2016 with Stephan Lopez PA-C at [facility] for staple removal and postoperative check. 10. Ice and elevate accordingly. 11. Any other questions or concerns, notify [facility] at [phone].
[2016-06-27] MEDS ORDERED: CIPROFLOXACIN 500 MG TAB PO SCH (21:00)
== END 2016-06-27 15:46 | DRG 481 ==
LOC: ENRESERVTM → ENRESERVDT → EDBD 11:12 → C.EDB 11:14 → C.MSN 19:34 → UNDOADMIN 19:34
PROVIDERS: ADMIT Orthopaedic Surgery Sports Medicine; ATTEND Orthopaedic Surgery Sports Medicine
PROC: 0QSB04Z Reposition Right Lower Femur with Internal Fixation Device, Open Approach (ICD-10-PCS; principal; 2016-06-20 10:15)
DX: S72.331A Displaced oblique fracture of shaft of right femur, initial encounter for closed fracture (principal); N39.0 Urinary tract infection, site not specified; D62 Acute posthemorrhagic anemia; E11.9 Type 2 diabetes mellitus without complications; I10 Essential (primary) hypertension; J44.9 Chronic obstructive pulmonary disease, unspecified; R09.02 Hypoxemia; Z96.653 Presence of artificial knee joint, bilateral; B96.20 Unspecified Escherichia coli [E. coli] as the cause of diseases classified elsewhere; W19.XXXA Unspecified fall, initial encounter; Y92.009 Unspecified place in unspecified non-institutional (private) residence as the place of occurrence of the external cause

== ENCOUNTER → 2016-07-20 | Outpatient (CLI) | payer OTHER ==
[~2016-07-20] MED LIST changes: +ACET500T57 PO; -CEFAZOLIN IV 2,000 MG/60 ML D5W IV SCH; +CIPR-255 PO; +LVNIS30 SQ; -ONDA4TAB10 SL
== END | disposition home or self-care (01) ==
LOC: C.RDSM 14:45
PROVIDERS: ATTEND Orthopaedic Surgery Sports Medicine
DX: Z09 Encounter for follow-up examination after completed treatment for conditions other than malignant neoplasm (principal)

== ENCOUNTER → 2016-08-18 | Outpatient (CLI) | payer OTHER ==
[~2016-08-18] MED LIST changes: +ATOR10TA82 PO; -ATOR10TA88 PO
== END | disposition home or self-care (01) ==
LOC: C.RDSM 13:30
PROVIDERS: ATTEND Orthopaedic Surgery Sports Medicine
DX: Z09 Encounter for follow-up examination after completed treatment for conditions other than malignant neoplasm (principal); M25.561 Pain in right knee

== ENCOUNTER → 2016-10-27 | Outpatient (CLI) | payer OTHER ==
[~2016-10-27] MED LIST changes: -ATOR10TA82 PO; +ATOR10TA88 PO
== END | disposition home or self-care (01) ==
LOC: C.RDSM 14:07
PROVIDERS: ATTEND Orthopaedic Surgery Sports Medicine
DX: Z96.7 Presence of other bone and tendon implants (principal)